=== PATIENT | female | born 1985 | race Caucasian/White ===

== ENCOUNTER 2023-11-26 01:42 | Emergency (ER) | payer MEDICAID, SELFPAY ==
[2023-11-26 01:47] VITALS: BP 111/62; PULSE 70; TEMP 36.5; O2SAT 99; BMI 23.8
--- NOTE | 2023-11-26 01:57 | ED_ITS ---
HPI - Chest Pain General Chief Complaint: Chest Pain Stated Complaint: CHEST PAIN Time Seen by Provider: 11/26/23 01:48 Source: patient Mode of arrival: walk-in Limitations: no limitations History of Present Illness HPI narrative: 38-year-old female presents to the emergency department for chest pain. It is in the left side of her chest and in a small focal area. It hurts when she pushes on it or moves. It started an hour ago when she was at work and there was no injury or other activity that could have caused this. It does not radiate and she has no back pain or complaints of shortness of breath. Related Data Home Medications ?Medication ?Instructions ?Recorded ?Confirmed bupropion HCl 150 mg 24 hr tablet, mg PO 11/26/23 extended release dicyclomine 20 mg tablet mg 11/26/23 hydroxyzine HCl 50 mg tablet mg 11/26/23 ibuprofen 600 mg tablet mg 11/26/23 metoprolol succinate 25 mg mg PO 11/26/23 tablet,extended release 24 hr omeprazole 40 mg capsule,delayed mg 11/26/23 release Allergies Allergy/AdvReac Type Severity Reaction Status Date / Time divalproex sodium (From Allergy Severe Confusion Verified 11/26/23 01:47 Depakote) morphine Allergy Intermediate Rash Verified 11/26/23 01:47 medroxyprogesterone (From AdvReac Intermediate Unknown Verified 11/26/23 01:47 Depo-Provera) Review of Systems ROS Narrative A ten point review of systems is negative except as noted above. Exam Narrative Exam Narrative: Nurses note and vital signs reviewed and patient is not hypoxic. General: The patient appears well and in no apparent distress. Patient is resting comfortably on cart. Skin: Warm, dry, no pallor noted. There is no rash noted. Head: Normocephalic, atraumatic Eye: Normal conjunctiva, no drainage Ears, Nose, Mouth, and Throat: oral mucosa is moist. Nares patent. Cardiovascular: Regular Rate and Rhythm Respiratory: Patient is in no distress, no accessory muscle use, lungs are clear to auscultation, no wheezing, rales or rhonchi. She has palpable tenderness in the left chest area which reproduces her symptoms. No crepitus present. Back: non-tender GI: Soft and nontender Musculoskeletal: The patient has no evidence of calf tenderness, no pitting edema, symmetrical pulses noted bilaterally Neurological: A&O normal speech Psychiatric: Cooperative Constitutional Vital Signs, click to edit/add: Last Vital Signs Temp 97.7 F 11/26/23 01:47 Pulse 70 11/26/23 01:47 Resp 16 11/26/23 01:47 BP 111/62 11/26/23 01:47 Pulse Ox 99 11/26/23 01:47 O2 Del Method Room Air 11/26/23 01:47 Course Vital Signs Vital signs: Vital Signs Temperature 97.7 F 11/26/23 01:47 Pulse Rate 70 11/26/23 01:47 Respiratory Rate 16 11/26/23 01:47 Blood Pressure 111/62 11/26/23 01:47 Pulse Oximetry 99 11/26/23 01:47 Oxygen Delivery Method Room Air 11/26/23 01:47 Temperature 97.7 F 11/26/23 01:47 Pulse Rate 70 11/26/23 01:47 Respiratory Rate 16 11/26/23 01:47 Blood Pressure 111/62 11/26/23 01:47 Pulse Oximetry 99 11/26/23 01:47 Oxygen Delivery Method Room Air 11/26/23 01:47 MDM - Chest Pain MDM Narrative Medical decision making narrative: Her workup including troponin is negative. She has had no dysrhythmias here. Her pain is reproducible and my clinical impression is that this is chest wall pain. Chest x-ray has not been officially read but on my interpretation there are no acute findings. Findings were discussed with the patient. Differential Diagnosis Differential diagnosis: Likely pneumothorax, atypical chest pain, st elevation myocardial infarction, costochondritis and chest pain Lab Data Attestation: I reviewed the patient's lab results. Labs: Lab Results 11/26/23 Range/Units 01:55 WBC 6.2 (4.0-11.0) 10^3/uL RBC 3.71 L (4.20-5.40) 10^6/uL Hgb 11.8 L (12.0-16.0) g/dL Hct 34.8 L (36.0-48.0) % MCV 93.8 (81.0-99.0) fL MCH 31.8 (26.7-34.0) pg MCHC 33.9 (29.9-35.2) g/dL RDW 13.0 (11.0-15.0) % Plt Count 248 (150-450) 10^3/uL MPV 10.0 (9.5-13.5) fL Neut % (Auto) 51.6 (43.0-75.0) % Lymph % (Auto) 40.6 (20.5-60.0) % [place] % (Auto) 5.9 (1.7-12.0) % Eos % (Auto) 1.1 (0.9-7.0) % Baso % (Auto) 0.6 (0.2-2.0) % Neut # (Auto) 3.2 (1.4-6.5) 10^3/uL Lymph # (Auto) 2.5 (1.2-3.8) 10^3/uL [place] # (Auto) 0.4 (0.3-0.8) 10^3/uL Eos # (Auto) 0.1 (0.0-0.7) 10^3/uL Baso # (Auto) 0.0 (0.0-0.1) 10^3/uL Abs Immat Gran (auto) 0.01 (0.00-0.03) 10^3/uL Imm/Tot Granulo (auto) 0.2 (0.0-0.5) % Sodium 138 (136-145) mmol/L Potassium 3.4 L (3.5-5.1) mmol/L Chloride 103 (98-107) mmol/L Carbon Dioxide 29.4 (21.0-32.0) mmol/L Anion Gap 9.0 BUN 7.0 (7.0-18.0) mg/dL Creatinine 1.01 (0.55-1.02) mg/dL Est GFR ( Amer) >60 (>=60 mL/min/1.73m^2) Est GFR (Non-Af Amer) >60 (>=60 mL/min/1.73m^2) BUN/Creatinine Ratio 6.9 Glucose 110 H (74-106) mg/dL Calcium 9.1 (8.5-10.1) mg/dL Troponin I High Sens 4.7 (4.0-51.3) pg/mL Imaging Data Chest x-ray: My impression: No acute findings ECG Data Attestation: I personally reviewed and interpreted this ECG as follows: (EKG on my interpretation shows normal sinus rhythm with a rate of 59 and no acute change.) Heart Score History: Slightly/Non-Suspicious ECG: Normal Age: <45 years Risk Factors: No Risk Factors Troponin: <Normal Limit Total Heart Score Recommendations & Risks:: 0 Discharge Plan Discharge Chief Complaint: Chest Pain Clinical Impression: Chest wall pain Patient Disposition: Home, Self-Care Time of Disposition Decision: 03:32 Condition: Good Mode of Transportation: Private Vehicle Prescriptions / Home Meds: No Action hydroxyzine HCl 50 mg tablet omeprazole 40 mg capsule,delayed release(DR/EC) dicyclomine 20 mg tablet metoprolol succinate 25 mg tablet extended release 24 hr PO ibuprofen 600 mg tablet bupropion HCl 150 mg tablet extended release 24 hr PO Print Language: Kittitian Instructions: Chest Wall Pain (ED) Referrals: Physician,Non-Staff, MD [Primary Care Provider] - 1 week
--- NOTE | 2023-11-26 01:57 | XR_ITS ---
The [address] [address] Patient Name: ALBIN GLEZ MRN: [id number] date: 1985 Sex: F Assigned Patient Location: ER Current Patient Location: Accession/Order Number: [id number] Exam Date: 11/26/2023 02:10 Report Date: 11/26/2023 04:19 At the request of: DEMI GONZALEZ Procedure: XR chest 1V EXAM: XR chest 1V HISTORY: Chest pain. COMPARISON: None. TECHNIQUE: AP erect portable chest radiograph performed. FINDINGS: The trachea is midline. The heart size is within normal limits. The cardiomediastinal silhouette and hilar shadows are within normal limits. There is no consolidation, pleural effusion or pulmonary vascular congestion. There is a small calcified granuloma within the right mid chest. There is no pneumothorax or osseous abnormality. XR/XR chest 1V IMPRESSION: There is no acute cardiopulmonary process. Electronically authenticated by: HARI ASHRAF Date: 11/26/2023 04:19
--- NOTE | 2023-11-26 01:57 | ECG_ITS ---
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
[2023-11-26 02:07] LABS: Basophils Percent Auto 0.6 % (0.2-2.0); Eosinophils Absolute Auto 0.1 10^3/uL (0.0-0.7); Eosinophils Percent Auto 1.1 % (0.9-7.0); Hematocrit 34.8 % (36.0-48.0); Hemoglobin 11.8 g/dL (12.0-16.0); Immature Granulocytes Abs Auto 0.01 10^3/uL (0.00-0.03); Immature Granulocytes Pct Auto 0.2 % (0.0-0.5); Lymphocytes Absolute Auto 2.5 10^3/uL (1.2-3.8); Lymphocytes Percent Auto 40.6 % (20.5-60.0); Mean Corpuscular HGB Conc 33.9 g/dL (29.9-35.2); Mean Corpuscular Hemoglobin 31.8 pg (26.7-34.0); Mean Corpuscular Volume 93.8 fL (81.0-99.0); Monocytes Absolute Auto 0.4 10^3/uL (0.3-0.8); Monocytes Percent Auto 5.9 % (1.7-12.0); Neutrophils Absolute Auto 3.2 10^3/uL (1.4-6.5); Neutrophils Percent Auto 51.6 % (43.0-75.0); Platelet Count 248 10^3/uL (150-450); Red Blood Count 3.71 10^6/uL (4.20-5.40); White Blood Count 6.2 10^3/uL (4.0-11.0)
[2023-11-26 02:26] LABS: BUN Creatinine Ratio 6.9; Calcium 9.1 mg/dL (8.5-10.1); Carbon Dioxide 29.4 mmol/L (21.0-32.0); Chloride 103 mmol/L (98-107); Estimated GFR (African America >60 (>=60 mL/min/1.73m^2); Estimated GFR (Non-African Ame >60 (>=60 mL/min/1.73m^2); Glucose 110 mg/dL (74-106); Potassium 3.4 mmol/L (3.5-5.1); Sodium 138 mmol/L (136-145); Troponin I High Sensitivity 4.7 pg/mL (4.0-51.3)
== END 2023-11-26 03:44 | disposition home or self-care (01) ==
PROVIDERS: Emergency Provider Emergency Medicine
DX: R07.89 Other chest pain (principal)
CPT/HCPCS: 36415; 71045; 80048; 84484; 85025; 93005; 99285

== ENCOUNTER 2024-01-03 03:14 | Emergency (ER) | payer MEDICAID, SELFPAY ==
--- OUTSIDE RECORDS SUMMARY | 2024-01-03 03:19 | XMS_ITS | CCD ---
Author Organization [facility] Care Team Providers Care Supervisor Mill Name Role Phone Unavailable Primary Care Provider SPEEDY Cardona Attending Unavailable Refugio Garza II Unavailable RAÚL JENSEN Attending Unavailable Kastor BAG PRESS OPERATOR HACKSAW INSPECTOR-C, Eulalia Spivey Attending Unavai lable Kastor BAG PRESS OPERATOR HACKSAW INSPECTOR-C, Eulalia Spivey Primary Care Unavai lable Kastor BAG PRESS OPERATOR HACKSAW INSPECTOR-C, Eulalia Spivey Admitting Unavai lable Kastor BAG PRESS OPERATOR HACKSAW INSPECTOR-C, Eulalia Spivey Attending Unavai lable Kastor BAG PRESS OPERATOR HACKSAW INSPECTOR-C, Eulalia Spivey Primary Care Unavai labLuigi Elias Consulting Unavailable Kastor BAG PRESS OPERATOR HACKSAW INSPECTOR-C, Eulalia Spivey Admitting Unavai lable Kastor BAG PRESS OPERATOR HACKSAW INSPECTOR-C, Eulalia Spivey Primary Care UnaTeresita Wilson Admitting Unavailable Teresita Gavin Attending Unavailable Kastor BAG PRESS OPERATOR HACKSAW INSPECTOR-C, Eulalia Spivey Primary Care Unavai lable Kastor BAG PRESS OPERATOR HACKSAW INSPECTOR-C, Eulalia Spivey Attending Unavai lable Kastor BAG PRESS OPERATOR HACKSAW INSPECTOR-C, Eulalia Spivey Admitting Unavai lable Kastor BAG PRESS OPERATOR HACKSAW INSPECTOR-C, Eulalia Spivey Primary Care UnavaLuigi Ba Admitting Unavailable Luigi Worley Attending Unavailable Kastor BAG PRESS OPERATOR HACKSAW INSPECTOR-C, Eulalia Spivey Primary Care Unavai Siddhartha Santana Admitting Unavailable Siddhartha Coppoal Attending Unavailable Provider, None Primary Care Unavailable Shonda Cerrato Admitting Unavailable Shonda Cerrato Attending Unavailable Kastor BAG PRESS OPERATOR HACKSAW INSPECTOR-C, Eulalia Spivey Attending Unavai lable Kastor BAG PRESS OPERATOR HACKSAW INSPECTOR-C, Eulalia Spivey Primary Care Unavai lable Kastor BAG PRESS OPERATOR HACKSAW INSPECTOR-C, Eulalia Spivey Admitting Unataylori Adrien Oliver Unavailable NO FAMILY, PHYSICIAN Primary Care Unavailable Refugio Garza II Admitting UnavailRefugio Campos II Attending Unavailabl e [facility] Care Unavailable Teresita Gavin Admitting Unavailable Romaine Teresita S Attending Unavailable NO FAMILY, PHYSICIAN Primary Care Unavailable Alberto Payton Admitting Unavailab Alberto Baca Attending Unavailab le Asaad, Imad Admitting Unavailable Asaad, Imad Attending Unavailable Eulalia Rodriguez Primary Care Unavailab le Allergies Allergy Classification Reported Allergen(s) Allergy Type Date of Onset Reaction(s) Facility (3 sources) medroxyPROGESTERone; Translations: [medroxyPROGESTERone] Drug Allergy Unknown [facility] Repository (3 sources) Morphine; Translations: [morphine] Drug Allergy Unknown [facility] Repository (2 sources) Valproate Drug Allergy Unknown [facility] Other (2 sources) Tylenol/Codeine #3 Drug allergy Unknown [facility] [employer] Other (1 source) medroxyPROGESTERone; Translations: [Depo-Provera] Drug Allergy [facility] Repository (2 sources) Valproate; Translations: [divalproex sodium] Drug Allergy 09-08-19 [facility] Repository (1 source) Valproate; Translations: [Depakote] Drug Allergy [facility] Repository (1 source) Acetaminophen Drug Allergy 09-08-19 [facility] Repository (1 source) Codeine Drug Allergy 09-08-19 [facility] Repository (1 source) medroxyPROGESTERone Drug Allergy 09-08-19 [facility] Repository (1 source) Morphine Drug Allergy 09-08-19 [facility] Repository Medications Current Medications Medication Drug Class(es) Dates Sig (Normalized) Sig (Original) benzonatate 100 mg oral capsule (2 sources) Non-narcotic Antitussive Start: 06-30-2021 End: 07-05-2021 take 1 capsule by mouth three times daily as needed for cough benzonatate (TESSALON PERLES) 100 MG capsule Take 1 capsule by mouth 3 times daily as needed for Cough 15 capsule 0 06/30/2021 07/05/2021 Active 24 hr buPROPion hydrochloride 300 mg extended release oral tablet (3 sources) Aminoketone take 1 tablet by mouth every twenty-four hours buPROPion HCl ER (XL) 300 MG 1 tablet in the morning Orally Once a day Active buPROPion HCl No t-Taking/PRN buPROPion HCl Ac tive 12 hr cetirizine hydrochloride 5 mg / pseudoephedrine hydrochloride 120 mg extended release oral tablet (1 source) alpha-Adrenergic Agonist, Histamine-1 Receptor Antagonist Start: 06-30-2021 End: 07-10-2021 take 5-120 mg by mouth once cetirizine-psuedoephedrine (ZYRTEC-D) 5-120 MG per extended release tablet Take 1 tablet by mouth 2 times daily for 10 days 20 tablet 0 06/30/2021 07/10/2021 Active clonazePAM 0.5 mg oral tablet (3 sources) Benzodiazepine take 1 tablet by mouth every twenty-f our hours clonazePAM 0.5 MG 1 tablet Orally Once a day Active take 1 tablet by kacy th every twenty-four hours KlonoPIN 2 MG 1 tablet Orally Once a day Not-Taking/PRN ibuprofen 600 mg oral tablet (1 source) Nonsteroidal Anti-inflammatory Drug take 1 tablet by mouth three times daily at mealtime as needed Ibuprofen 600 MG 1 tablet with food or milk as needed Orally Three times a day Active 24 hr metoprolol succinate 25 mg extended release oral tablet (1 source) beta-Adrenergic Rip take 1 tablet by mouth every twenty-four hours Metoprolol Succinate ER 25 MG 1 tablet Orally Once a day Active 24 hr nicotine 0.875 mg/hr transdermal system (1 source) Cholinergic Nicotinic Agonist apply 1 dose transdermal route once daily Nicotine 21 MG/24HR 1 patch to skin Transdermal Once a day Active ondansetron 8 mg oral tablet (1 source) Serotonin-3 Receptor Antagonist take 1 tablet by mouth every twenty-four hours Ondansetron HCl 8 MG 1 tablet as needed Orally Once a day Active pantoprazole 40 mg delayed release oral tablet (1 source) Proton Pump Inhibitor take 1 tablet by mouth every twenty-four hours Pantoprazole Sodium 40 MG 1 tablet Orally Once a day Active Completed/Discontinued Medications Medication Drug Class(es) Dates Sig (Normalized) Sig (Original) Acetaminophen / HYDROcodone (2 sources) Opioid Agonist Start: 03-26-2010 take 1 tablet by mouth every six hours as needed for pain Vicodin 5-500 MG 1 tablet as needed for pain Orally every 6 hrs prn for 5 day(s) Mar, Not-Taking/PRN Start: 03-26-2010 take 1 tablet by kacy th every six hours as needed for pain Vicodin 5-500 MG 1 tablet as needed for pain Orally every 6 hrs prn for 5 day(s) Mar, Not-Taking diclofenac sodium 0.01 mg/mg topical gel (2 sources) Nonsteroidal Anti-inflammatory Drug Start: 12-10-2022 Diclofenac Sodium 1 % apply 1-2 grams to affected area Externally up to Four times a day for 30 days Nov, Not-Taking/PRN meloxicam 15 mg oral tablet (2 sources) Nonsteroidal Anti-inflammatory Drug Start: 12-10-2022 take 1 tablet by mouth every twenty-four hours Meloxicam 15 MG 1 tablet Orally Once a day for 30 day(s) Nov, Not-Taking/PRN Metoprolol-hydro CHLOROthiazide (2 sources) Metoprolol-hydro CHL OROthiazide Not-Taking/PRN Metoprolol-hydro CHLOROthiazide Active 12 hr pseudoephedrine hydrochloride 120 mg extended release oral tablet (1 source) alpha-Adrenergic Agonist Start: 06-30-2021 End: 06-30-2021 pseudoephedrine (SUDAFED 12 HR) extended release tablet 120 mg rizatriptan 10 mg oral tablet (2 sources) Serotonin-1b and Serotonin-1d Receptor Agonist take 1 tablet by mouth every twenty-fou r hours Maxalt 10 MG 1 tablet Orally Once a day Not-Taking/PRN Problems Active Problems Problem Classification Problem Date Documented Da te Episodic/Chronic Abdominal pain (1 source) Unspecified abdominal pain Episodic Joint disorders and dislocations; trauma-related (3 sources) Disorder of left patellofemoral joint; Translations: [Patellofemoral disorders, left knee] Chronic Joint disorders and dislocations; trauma-related (3 sources) Patellofemoral stress syndrome; Translations: [Patellofemoral disorders, right knee] Chronic Nausea and vomiting (1 source) Nausea with vomiting, unspecified; Translations: [Nausea with vomiting, unspecified] Onset: 09-08-2023 Episodic Other aftercare (2 sources) High risk drug monitoring status; 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] Episodic Other gastrointestinal disorders (1 source) Constipation; Translations: [Constipation, unspecified] Episodic Other gastrointestinal disorders (2 sources) Constipation, unspecified; Translations: [Constipation, unspecified] Onset: 09-08-2023 Episodic Other lower respiratory disease (1 source) Cough; Translations: [Cough] Episodic Other nervous system disorders (4 sources) Chronic pain; Translations: [Other chronic pain] Chronic Other nutritional; endocrine; and metabolic disorders (1 source) Abnormal weight loss; Translations: [Abnormal weight loss] Onset: 09-08-2023 Episodic Spondylosis; intervertebral disc disorders; other back problems (2 sources) Solitary sacroiliitis; Translations: [Sacroiliitis, not elsewhere classified] Chronic Unclassified (1 source) Pain in right knee; Translations: [Pain in right knee] Onset: 12-10-2022 Viral infection (1 source) Disease caused by 2019-nCoV; Translations: [COVID-19] Episodic Past or Other Problems Problem Classification Problem Date Documented Da te Episodic/Chronic Other gastrointestinal disorders (1 source) Abdominal distension (gaseous); Translations: [Abdominal distension (gaseous)] Onset: 12-17-2022 Episodic Other non-traumatic joint disorders (1 source) Pain in left knee; Translations: [Pain in left knee] Onset: 12-10-2022 Episodic Results Test Name Value Interpretation Reference Range Facility Drug Screen,Urineon 09-08-19 Amphetamine Screen,Urine Negative Normal Negative [facility] Comment on above: Performed By: #### U RDS #### [facility] [address] [place] [address] [place] Barbiturate Screen,Urine Negative Normal Negative [facility] Comment on above: Performed By: #### U RDS #### [facility] [address] [place] [id number] [place] Benzodiazepines Screen,Urine Negative Normal Negative [facility] Comment on above: Performed By: #### U RDS #### [facility] [address] [place] [address] [place] Cannabinoid Screen,Urine Positive High Negative [facility] Comment on above: Result Comment: Thes e are unconfirmed results and should not be used for legal purposes. Drug Cut-Off Concentration: AMPH 1000 ng/mL LAURYN 200 ng/mL SHIRIN 200 ng/mL COCM 300 ng/mL OP 300 ng/mL PCP 25 ng/mL THC 20 ng/mL PERFORMED BY: [place] [address] PATHOLOGIST BRIM SHAPER CAPRI LEVI M.D. Performed By: #### U RDS #### [place] [address] [place] Cocaine Screen,Urine Negative Normal Negative [facility] Comment on above: Performed By: #### U RDS #### [address] Opiate Screen,Urine Negative Normal Negative [facility] Comment on above: Performed By: #### U RDS #### [address] Phencyclidine Screen,Urine Negative Normal Negative [facility] Comment on above: Performed By: #### U RDS #### [place] [address] [place] Stefano 09-08-2023 L Specimen: [id number] Received: 09/08/23 Status: GALINDO Gandara Num: [id number] Spec Type: Surgical Subm Dr: Jose Cruz Andrade MD Tissues: A Small Intestine - Biopsy/Polyp (SMALL BOWEL) B GASTRIC FOR HP (GASTRIC HP) C Colon Biopsy (RECTUM POLYP) Procedures: HE/6, Gross/Micro L4/3, H PYLORI, IHC First AB Age/ Patient Sex Location Account Attending Physician Reed,Arielle Prieto 38/F [id number] Jose Cruz Andrade MD SPEC NUM: [id number] RECD: 09/08/23 STATUS: MYRONT REQ NUM: [id number] [place]: 09/08/23- SUBM DR: Jose Cruz Andrade MD ENTERED: 09/08/23 [facility] DR: SPEC TYPE: Surgical DEPT: S ORDERED: HE/6, Gross/Micro L4/3, H PYLORI, IHC First AB ORDERED: HE/6, Gross/Micro L4/3, H PYLORI, IHC First AB Pathological Diagnosis A. Small bowel, biopsy: No significant pathologic abnormality. B. Stomach, Biopsy: Reactive/ Chemical Gastropathy. C. Polyp, rectum, biopsy: Hyperplastic polyp. Clinical Information Nausea, vomiting, weight loss, constipation, family history of colon cancer. Rule out celiac and rule out H. pylori. Gross Description Received are 3 formalin filled containers each labeled with the patient's name, date of and specific specimen site. A. Further labeled small bowel BX are 2 grace mucosal tissue fragments each measuring 0.3 x 0.2 x 0.1 cm, entirely submitted in A1. B. Further labeled gastric BX is a 0.3 x 0.3 x 0.1 cm grace mucosal tissue fragment, entirely submitted in B1. ---- Specimen: [id number] Received: 09/08/23 Status: GALINDO Lloyddion Num: [id number] Spec Type: Surgical Subm Dr: Jose Cruz Andrdae MD Tissues: A Small Intestine - Biopsy/Polyp (SMALL BOWEL) B GASTRIC FOR HP (GASTRIC HP) C Colon Biopsy (RECTUM POLYP) Procedures: HE/6, Gross/Micro L4/3, H PYLORI, IHC First AB ---- Patient: Arielle Reed [id number] (Continued) ---- Specimen: [id number] Received: 09/08/23 (Continued) Gross Description (Continued) Signed (signature on file) Grabiel Gomez MD 09/09/23 1719 ---- Specimen: [id number] Received: 09/08/23 Status: GALINDO Juliocesar Num: [id number] Spec Type: Surgical Subm Dr: Jose Cruz Andrade MD Tissues: A Small Intestine - Biopsy/Polyp (SMALL BOWEL) B GASTRIC FOR HP (GASTRIC HP) C Colon Biopsy (RECTUM POLYP) Procedures: HE/6, Gross/Micro L4/3, H PYLORI, IHC First AB ---- Patient: Arielle Reed [id number] (Continued) ---- Specimen: [id number] Received: 09/08/23 (Continued) Gross Description (Continued) C. Further labeled rectal polyp is a 0.3 x 0.2 x 0.1 cm grace polypoid tissue fragment, entirely submitted in C1. CPT Codes 22367u4 ---- ---- Specimen: [id number] Received: 09/08/23 Status: GALINDO Lloyddion Num: [id number] Spec Type: Surgical Subm Dr: Jose Cruz Andrade MD Tissues: A Small Intestine - Biopsy/Polyp (SMALL BOWEL) B GASTRIC FOR HP (GASTRIC HP) C Colon Biopsy (RECTUM POLYP) Procedures: HE/6, Gross/Micro L4/3, H PYLORI, IHC First AB ---- Patient: Arielle Reed [id number] (Continued) ---- Signed (signature on file) Grabiel Gomez MD 09/09/23 1719 [facility] Coding Summaryon 02-24-2023 Coding Summary HTMLBase 64 WbgaeooiRDh2aBt+PGhlYW Q+HA0DIKEzI19imECpiU7x T0YDWYxZAlvcGVOESSqNLv CjjtHzOL2leAErOXTb IC8+CS4tJTGbDlpdfXZse4 K8mIU5I68pah4iVXpifYN9 NTNbXcHrsrsjr8ozkBm5WS cuNmluOyBt WFDgxS89ZJG1wK17Cm94uO GaxTOcv8slfEz5DlXlHIEv HLQ0yEwnPFrmr7DjYEVtE4 2taIGzf9B2 VMMbzGjuvHCgGcXvfJV7bF 0jMMilssitm4xnoovrVop3 ca72hSRjb6U1mPN5D1Rwnp G2GVZorAYd RkeqjFHFmI5kznxvk3ovol xePxYjIWQcVVl2WDo0ZIWt fZjuAqDvUY52HFY4CSChqp IxZ3SjQVUf bTepLdP6f2D4Xb7NH7PNDs ffD1KBMBNYZPlggBC+PC90 hz17I0KlNgjiKyk8FVGoSZ P7vWD6xQ7v KKNiAGyle2G7bBG5E0Jtql Bavy6vu8qrSZZtCDegD83x yEDsy4S1PQBkdDO4CTHdmZ dwGvZqaS26 Oyc+WRImxCopg6DrFoaew4 bma9fldDv4TqruPKGqmvKi iBinEOT8p2EdPv0bXNMupO N3mBT8dV8o XiPzFmX7QQzbB755HkOhiF ZtVserR14zB5ZfdIJ+PHRy Aes9YYPsfHhfYV7hF8EoNJ RpbmctbGVm fFliKU1uREEivitdPFQmiP 9kIWJqY3p4GwSaElK5KTge G4OoYDYdtywrHv19pH9uYr GpMxR3QWnx J7UpwpW4CXFdrLRnOCukQL F2J22ld2F8BCBlWTYzCKV0 zCI5nG6eoJzlbrjibAMbwG sgdmVydGlj GFsdZAmfZ578LFGokGqoCo NvZGluZyBEYXRlOiAgMDEv MTAvMjAyNDwvdGQ+PHRkIH Z2lBsfTUNh rISmVBqvXp0vzBgoxXhdSE 8wSJGkaskuMHBlzH1uUKBv tZNpdEzoRZ5cPDLadvryp5 67YkCcYFT6 XURzaWGyU9ZnoJ2gTaNiHT HmFCRwN1BdqYCvMMajU587 QXxlPtB7NBHxxtLoZ7KyJQ FsaWduOiB0 r7X0Bm1Lp8AsoubhW1QirS RvJcZpIuzjBYg6V2VeDvnt dHI+VS95HWUaYS15EEz2QF F3pRowTMag EAJyG5RmyE3lRhQpBRXfEW RkOyc+PHRhYmxlIHdpZHRo TNzaSUXeCbWzsHjyFP6jNd 9yZGVyLWNv iLnieDRgSbKsb7hoFNUbRZ lzLM1vpWbvL6FxtMM7CGPm o9g2Sd75V30dC1OalKR+PG EexXO1sEC3 qJ1xRxMbJgC5DGzrC366Lw BwoPNmLwapv6cdl3zsiYg6 JgF1LLFvhlNjxBxwGYS5g1 YqFi10Z59z IHdpZHRoPSIxNSUiIHZhbG cyhk4kiV3tXk9+PGNvbCB3 dIK8vK6aKsTlTiA5FHajE4 49InRvcCIv Iywow8gqs7xrlUh4BwRyZR ZfrbZxeAvsKXH0v9OwWn87 X2QyyVgqt8ErHbb7bz82oL Zfa2V2hAE5 J6XsNVWjkiopcKHehUnuCX 3mUXMqjjjvEZLcyL2oMBQb J7l0PhKrZuC7ZTnwP3Jmpb A2OABcoOYf LRRlkFUOkR1sdepgh7bstn gkWuVnRLBfTKm1VPy4UFEi uOneXdHtXWH8LzG1PJZ9aS HlkM1srYly gucjsX0dQkg+SJL2nGMvhB XDMN5dYjzlqBS+PHRkIHN0 eQptSKoxOVUpoZ4kFVNoN8 b1WeUsCfD5 DPztX3XoatQ6IMFfpFTiUU SacHWSyS1qsasxb7kznksh VhSjXGEuLVx1OZq6EZNetH duOiBsZWZ0 JcT9GGJ4cHHttF7kpDamgk zovH1nBrm+QmlydGggRGF0 XGt3T4RaUhu5TEEpwXwmJE 0ncGFkZGlu Cb4cvFllyIufCM3oDJKiha ocl789RaQfo0khIUFlnJGo JEkhKZA1Z52lx1Y4JIXfEM MnVNU8dUH7 jW1uqKflylcyzZEhyPttma JqlTrkODduOWhdG447CGHy bQmwGwEjJBt3M5HkLgn3VF QnaIsvJF5s qJKdSClgDq9kwVrdqPyvPA 7fRQGngxwgf796LnCvz0wj TUQdaXEjKMiiCHA1Z69yj9 Y9PDEuYSXb FWG5lCP3oW9lyVsnmsslkI VmdDsgdmVydGljYWwtYWxp G837YVZlzVxwWhXrmSd6S3 MoMrx5GDUe oEhoXB9oiFAyXWwnJe6uyB tgmTdtQN1tCYEjintfw338 GxAht1wvIALfeJDiZOdoPU D6L43zb3Y1 TSTwRFWmALY1iHQ7xJ3rkJ lnbjogbGVmdDsgdmVydGlj VBlhZChwQ214GKXtyOzuAq BhdGllbnQg OBzeGPv2E3CdFxizxTZ+PC 68SHWpQC57pCDnaNCze5mx xEy6ZzSiDZZgRAC1pXljRO zla4SwJIGl W58tkLDbn7D2CQVouVsimM XdMuTbaZC0kI7jCZcxzphj z9mdjxjbSsgfy9ycno42jO 68U71wHRhg ZHRoPSIzMCUiIHZhbGlnbj 8keX2yIh7+LUVxgQI2xUT1 pJ2rOIIxWzU6TZceD843Qb RvcCIvPjxj h4ruw4qcnXg4VbZ3EREfxu ZnxGzdISM8b4TzMo26W00w IHdpZHRoPSIyMCUiIHZhbG epvp7yrP4y Ii8+QCZokQN8yQJ2pB8lJa CiJjX5LGphJ073SjLfqPRf RjemQ26rJ0EyqAP+PHRyPj y0PSWcdWcp NL5ogPQzCBwyAs7vLDI4Pl BaMiVaMCbdJ1WnCJAjrpfy bqedoCH4CMIkAFOpnR10Aq 9udDogMTBw sKNSmS9bnamyf2uugkiuMk GlZGLqNIg1NWn6TYSfqBtj DaAkDBT1TqW5IUM9cNPdrM 1hbGlnbjog sF8mP0CnXWMrkuedXa74sZ 9mAmFcWiC6FZbjPcp+V0FS HFaaXVPPPGHFSZ61JR90wQ Tff2J9fKD1 I7BnKMXvawfugiejeWU3FN LsHNKzgA67gESdONjkAr7s m7B1h226SAXwJMVcbV90Na 9udDogMTBw eCKAwK7rgwpqj7kidluxBu VtSFMaVXa7JSf1GYMtcMvl ZgKeHAA2AzL2KWN9eUFxtB 1hbGlnbjog pK6kXoi+YCLgDbniPYw4Di wvdGQ+VCDhDFC4iZhkXSkx XEZhrK6wLEXxQ4p8PwTgUn H0OMciH3Yi OPExyxbvFu78rN9lRkZzMt F1AEhfU4BluoP5XMCinWIy JYqpXMO1K16ii5V7HRPtWF DsAIH4rBI6 lW2rcTdwtbkyjKHvmVkdvy WqkUbkQCboXYxxL037BLYc pRrwXwS9RAdsBMGdJI47OP 39vTKhr6S9 fXD6S8GeAYIzeiavxanjuE N0FSXuWPStoD73vMMtOBrv Lu4io4Q7e314TJCgZADxbX 08Hu8tiQjd EHJlyUYBwR9tlovnh1wpkt pvLiTgDRNhDKc2GUp3UNXo wFrxQpDjDLK6YgI1LGZ2cP NscF3jtRme lizabD3lGup+RkVNQUxFPC 21IK16wSCgs0I2tQO0R2Yq VTAybptyesjnsLI8WYYlKG JopL31wOIp REofPy7kl9W2g296UCRhWP KneS53Xh8uxPjkQQAysMLN uM2cuepwd0cmpuhzVvLuSY SyBWf6YEj1 YRFqoZqdHwOmPRU7HqQ2BI Y6qTDtuD2qsRsrsnyrzM9z Oyc+YZ1cxibllcW1KC98ZW 44L1CdJwxt dGFibGU+PHRhYmxlIHdpZH RfMZgaDADwYkRwmLgdWI7l Xq2lAMQaIAEyaDughCFtKt Knl1enHHVx VYeuOV5orMwyV5LfkCY5MJ Qtb3q0Ai89Z34mU3BozYN+ GQShwTS3lZW6sY8lFsZlYp F3WWfdP091 YiAvoQHcBxjnz0fnf0jebM y7YsIxBYQtxxWwtPbjTLV1 p4GgAv19I53iTWuiHUKeAA IyMCUiIHZh rInbtg7naI9dFs3+PGNvbC N8oHJ9fA4bNfAsJuK9YAzi H658LfZufGNwVtfgK34nH6 JvdXA+PHRy Bjd6RLGkpTxgJS4crCByFI zjMo4uWGO2JlZxOyRcRZhh J6UiVWVbkvvzsxbasOH2PU DcDNLhpQ98 Ox4ejElkBf4zYRYzXOP1CA CkyOMeV9GruF8yTvJiNNAk QPWxL9EufURrWYspQ831TA tdQpS1KQHk nySwQ6NcGQBjkSpsBmT2e0 O3Ox0AuAbnbGBkAC7mTbMq HRa0Z2DeQck4SUTkyNhdWE 0ncGFkZGlu De2mtVfmgRfiYZ0iLJOsfz xrb621LnJdd0biHUHkuOOw GYvhEZF8N84iu0I5APBsZD NsGLJ5sKU7 dC2eoYdrgvimmTXnhClynq KmuIpvZKkcHPlxQ587TRXw zIggIgDSHzs4N9CqSsj8FW GfdKlcEA7v rUUjFXyiGn2ptCnyzSqgEH 9qXGWnqfgzw528GlDfs7md NVFwxJXsTGkpDHA3S65zo8 D5WJRkNHKy WXG3kRM9aH0hgTsxgxkdaW VmdDsgdmVydGljYWwtYWxp W547QHQioGlqAn1ILxs6L3 MqXwq9HMYl tOsmCW0dgGRhEPilKt4mvQ hdiDrwVK8nHCBkyvqnp219 FxZwr6ftIVSbbBMgLCuhKY Q5O87na2H1 HBMjMAWpAOJ5zLH6rM0ttL lnbjogbGVmdDsgdmVydGlj WEavDActM769CUQlcGqkPs BheWVyOjwv dGQ+CD31ze25Z3JpYjohJd w9DOLsEZV1tEF9qI8wSJKi VMust3J0uDJ5P8QlaoAdaz 5sl1suMQRn ZTo (more content not included)... [facility] 02-17-2023 [facility] Office Visit ([facility]) ARIELLE REED ([id number]) 1985 F Date Time Provider Department 02/17/23 3:30 PM RAÚL JENSEN [facility] During your visit today, we recorded the following information about you: Pulse Blood pressure Weight 77/minute 104/70 63.5 kg Raúl Jensen MD 02/17/2023 4:01 PM [facility] [place] SECTION OF REGIONAL CARDIOLOGY OUTPATIENT VISIT DATE February 17, 2023 OUTPATIENT VISIT TYPE NEW PRIMARY CARE PHYSICIAN: To use this Smartlink, specify the provider ID whose address you want to display, e.g., .[email or web address][1 (where 1 is the provider ID). A written report of the findings and recommendations will be sent to the requesting provider via shared medical record or via [employer]. Patient is being seen at the request of the referring physician for Arrhythmia , Chest pain, Hyperlipidemia, Hypertension, and syncope. HISTORY OF PRESENT ILLNESS: Ms. Reed is a 37 year old female with a history of Mgsgq-Apfzduqrz-Sccce status post ablation therapy at age 14. Syncope. Chest discomfort. Palpitations. Anxiety. Bipolar disorder. Carpal tunnel. Fibromyalgia. ? Hyperlipidemia. ? Hypertension. History of smoking. Cardiovascular workup includes: Ablation therapy for Pwrkm-Utcpdsmlr-Fjimb at age 14. A treadmill stress testing on 09/22/2022 at [facility] was negative however the patient did only 4 minutes and 42 seconds of total exercise. She achieved 79% maximal heart rate predicted. An echocardiogram done on 09/22/[address] [facility] showed ejection fraction 55 to 60%. No valvular heart disease of any significance. For a few months now she has been experiencing symptoms of chest discomfort described as sharp stabbing pain lasting between 20 minutes to few hours. She mentioned that the chest discomfort happen with rest and on activity. However her symptoms also include shortness of breath with any activity. The dizziness got much better after she started the small dose of Toprol-XL however she still has it occasionally. IMPRESSION: Encounter Diagnosis ICD-10-CM 1. Chest discomfort R07.89 CT CALCIUM SCORING SELF [place]Y ([place]) 2. WPW (Cnxsj-Syjzoqsih-Vcyno syndrome) I45.[address] CALCIUM SCORING [place]ELF [place]Y [place] 3. Status post ablation of accessory bypass tract Z98.[address] [place]CIUM [place] 4. Syncope and collapse R55 ECG COMPLETE CT CALCIUM SCORING [place]ELF [place]Y ([place]) 5. Dizziness R42 ECG COMPLETE CT CALCIUM SCORING [place]ELF [place]Y ([place]) 6. Smoking F17.200 CT CALCIUM SCORING SELF [place]Y [place]) PLAN AND RECOMMENDATIONS: Chest discomfort Atypical most likely noncardiac. Negative suboptimal stress test. I will ask for a calcium scoring of the coronary arteries. If that is negative no further cardiac workup is needed. History of Scyji-Mudkdtgcj-[id number] Status post ablation therapy at age 14. Syncope As well as dizziness. Suboptimal stress testing however negative for ischemia. Echocardiogram normal. No more syncope at this point. Dizziness is very unlikely to happen since she started taking her Toprol-XL. Also I did orthostatic pressures today and her blood pressure was exactly the same 104/70 sitting and 105/72 standing up. No orthostatic pressures. However the patient admitted that she does not drink much she drinks only 1 cup of water a day. She was advised to take 64 ounces of water a day and include some salt tablets at times if her blood pressures are low. Smoking The patient continues to smoke about 5 cigarettes a day at this point. She smoked for the last 15 years. She was advised again to stop smoking completely and indefinitely. REVIEW OF SYSTEMS: Chest pain Yes Shortness of breath No Bleeding No Dizziness Yes Syncope Yes Palpations No 10 systems reviewed and are negative with the exception of pertinent positives described in HPI PHYSICAL EXAMINATION: BP 104/70 Pulse 77 Wt 63.5 kg (140 lb) SpO2 99% HEENT: normocephalic, EOMI Heart: regular rhythm Lungs: clear to auscultation Abdomen: bowel sounds present Extremities: no edema Musculoskeletal: chest wall nontender Neurological: alert and oriented Psychiatric: appropriate and cooperative Skin: no rash, cellulitis or lesions appreciated CARDIOVASCULAR MEDICINE TESTING: I have personally reviewed ECG, laboratory results, outside medical records, echocardiogram report, and stress test report PAST CARDIAC HISTORY: See above. History reviewed. No pertinent past medical history. History reviewed. No pertinent surgical history. Social History Tobacco Use Smoking status: Every Day Packs/day: 0.25 Years: 15.00 Additional pack years: 0.00 Total pack years: 3.75 Types: Cigarettes Substance Use Topics Alcohol use: Not Currently History reviewed. No pertinent family history. ALLERGIES Allergen Reactions Morphine Other: See Comments ineffect (more content not included)... Normal [facility] ECG COMPLETEon 02-17-2023 ECG COMPLETE Ventricular Rate : 7 2 BPM Atrial Rate : 72 BPM P-R Interval : 110 ms QRS Duration : 78 ms Q-T Interval : 358 ms QTC Calculation(Bazett) : 392 ms Calculated P [place] : 42 degrees Calculated R [place] : 66 degrees Calculated T [place] : 64 degrees SINUS RHYTHM WITH SHORT KS OTHERWISE NORMAL ECG Confirmed by RAÚL JENSEN MD ([id number]) on 02/18/2023 8:27:50 AM NAME : ARIELLE REED PID : [id number] : 1985 Gender : Female Race : ORD : [id number] Procedure Date : Feb 17 2023 15:40:26 Edit Date : Feb 18 2023 08:27:55 Diagnosis: SINUS RHYTHM WITH SHORT KS OTHERWISE NORMAL ECG Confirmed by RAÚL JENSEN MD ([id number]) on 02/18/2023 8:27:50 AM 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 30,000 cfu/ml Escherichia coli ORGANISM EC --- SUSCEPTIBILITY -- ORGANISM ID: 1 ANTIBIOTIC INTERPRETATION FAB STATUS ORGANISM ECEC Amik S <=16 Verified Amox/Cla S <=8/4 Verified Amp R >16 Verified Amp/Sul I 16/8 Verified Azt S <=4 Verified Cefaz S 4 Verified Cefep S <=8 Verified Cefo S <=2 Verified Ceftaz S <=1 Verified Ceftri S <=1 Verified Cefur S <=4 Verified Ceph I 16 Verified Cipro S <=1 Verified Ertap S <=0.5 Verified Gent S <=2 Verified Imi S <=1 Verified Levo S <=2 Verified Nitro S <=32 Verified Pip/Luis Carlos S <=16 Verified Tetra S <=4 Verified Tobra S <=4 Verified Tri/Sulf S <=2/38 Verified Normal [facility] Comment on above: Performed By: #### 6 [id number], [id number] #### [facility] (DEFAULT) [address] [place] [address] 345[address] ED Clinical Summaryon 2022 ED Clinical Summary [facility] - Emergency Department [address] [place] [id number] ED Clinical Summary PERSON INFORMATION Name: ARIELLE REED Age: 37 Years Sex: FEMALE : 1985 MRN: Acct#: Visit Reason: Dysuria; PAINFUL/FREQUENT URINATION Arrival: 02/09/2023 14:19:00 Discharge: 02/09/2023 16:45:00 LOS: 000 02:26 Check In: 02/09/2023 14:19:00 Checkout:02/09/2023 16:45:00 Address: [address] [facility] [address] PCP: Eulalia Duke APRN PROVIDER INFORMATION Provider Role Assigned Unassigned edmay RN HEMO DIALYSIS Nurse 02/09/2023 14:24:25 Siddhartha Coppola MD ED Provider 02/09/2023 16:29:12 VITALS INFORMATION Vital Sign Triage Latest Temperature Tympanic Temperature Temporal Artery Pulse Rate O2 Sat 100 % 100 % Respiratory Rate 18 br/min 18 br/min Blood Pressure /53 mmHg /53 mmHg MEDICAL INFORMATION Medications Given: Medication Dose Route cephalexin 1000 mg Oral phenazopyridine (Pyridium) 100 mg Oral Allergy Information: Depo-Provera; Depakote; divalproex sodium; morphine; medroxyPROGESTERone PHYSICIAN DOCUMENTATION Patient: ARIELLE REED Age: 37 years Sex: FEMALE : 1985 Associated Diagnoses: Acute cystitis Author: Siddhartha Coppola MD Basic Information Time seen: Date & time 02/09/2023 16:29:00. Additional information: Chief Complaint from Nursing Triage Note : Chief Complaint 02/09/2023 14:19 EST Chief Complaint Patient is here for painful urination. Started a couple weeks ago. . History of Present Illness 37-year-old female presented to ER for evaluation of dysuria, urinary frequency. Patient stated that she had onset of symptoms about 3 weeks ago. Stated that she has been taking fluids and cranberry. Had some relief. Reported having worsening symptoms within the past several days. Denies any fever. No flank pain or abdominal pain. Reported having frequency, urgency and pain on urination. Review of Systems Constitutional symptoms: No fever, ENMT symptoms: Stated that she had an enlarged lymph node at the right anterior cervical neck area, several weeks ago. Stated that she was to follow-up with PCP if that not improved over several weeks. Has not improved.. Gastrointestinal symptoms: Abdominal pain, suprapubic. Genitourinary symptoms: Dysuria, hematuria. Psychiatric symptoms: Negative except as documented in HPI. Health Status Allergies: Allergic Reactions (Selected) Moderate Morphine- Itching. Severity Not Documented Depakote- Went crazy. Depo-Provera- Bleeding. Divalproex sodium- No reactions were documented. MedroxyPROGESTERone- No reactions were documented.. Medications: (Selected) Documented Medications Documented Estradiol Patch 0.025 mg/24 hours twice weekly transdermal film, extended release: See Instructions, 1 patch(es), 0 Refill(s) ibuprofen 600 mg oral tablet: 600 mg = 1 tab(s), Oral, QID, 360 tab(s), 0 Refill(s) ondansetron 8 mg oral tablet: 8 mg = 1 tab(s), Oral, BID, 6 tab(s), 0 Refill(s) pantoprazole 40 mg oral delayed release tablet: 40 mg = 1 tab(s), Oral, Daily, 90 tab(s), 0 Refill(s). Past Medical/ Family/ Social History Medical history: Resolved Left ankle pain ([id number]): Resolved. Foot pain, left (609881758): Resolved. Hemorrhoid (744875492): Resolved. Ectopic (58249516): Resolved., Reviewed as documented in chart. Surgical history: Bilateral Medial Branch BlockL3,4,5 on 04/26/2019 at 33 Years. Hysterectomy ([id number]) in 2011 at 26 Years. heart ablasion in 1999 at 14 Years. Exploratory laparotomy ([id number]). Tonsillectomy (471313764)., Reviewed as documented in chart. Family history: Cancer Mother Cancer Brother Grandparent , Reviewed as documented in chart. Social history: Social & Psychosocial Habits Alcohol 07/20/2015 Risk Assessment: Denies Alcohol Use 02/09/2023 Alcohol Use: Past Employment/School 08/17/2018 Status: Unemployed Description: Disabled for 3 yrs for back and neck Exercise 08/17/2018 Duration (average number of minutes): 0 Home/Environment 08/17/2018 Lives with: Children, Self Living situation: Home/Independent Nutrition/Health 08/17/2018 Caffeine intake amount: Medium Substance Use 07/20/2015 Risk Assessment: Denies Substance Abuse 02/09/2023 Substance use: Current Type: Marijuana Frequency: Daily Tobacco 02/09/2023 Smoking tobacco use: Current everyday tobacco Electronic Cigarette/Vaping 02/09/2023 Electronic Cigarette Use: Never , Reviewed as documented in chart. Problem list: Active Problems (10) Asthma Back pain, chronic Chipped tooth Common migraine Depression Fibromyalgia Lumbago Lumbar spondylosis Seasonal allergies Smoker , per nurse's notes. Physical Examination Vital Signs Vital Signs 02/09/2023 14:19 EST Temperature Oral 37 DegC Heart Rate Monitored 79 bpm Respiratory Rate 18 br/min Systolic Blood Pressure 115 mmHg Diastolic Blood (more content not included)... Normal [facility] ED Note - Physicianon 2022 ED Note - Physician Patient: ARIELLE REED Age: 37 years Sex: FEMALE : 1985 Associated Diagnoses: Acute cystitis Author: Siddhartha Coppola MD Basic Information Time seen: Date & time 02/09/2023 16:29:00. Additional information: Chief Complaint from Nursing Triage Note : Chief Complaint 02/09/2023 14:19 EST Chief Complaint Patient is here for painful urination. Started a couple weeks ago. . History of Present Illness 37-year-old female presented to ER for evaluation of dysuria, urinary frequency. Patient stated that she had onset of symptoms about 3 weeks ago. Stated that she has been taking fluids and cranberry. Had some relief. Reported having worsening symptoms within the past several days. Denies any fever. No flank pain or abdominal pain. Reported having frequency, urgency and pain on urination. Review of Systems Constitutional symptoms: No fever, ENMT symptoms: Stated that she had an enlarged lymph node at the right anterior cervical neck area, several weeks ago. Stated that she was to follow-up with PCP if that not improved over several weeks. Has not improved.. Gastrointestinal symptoms: Abdominal pain, suprapubic. Genitourinary symptoms: Dysuria, hematuria. Psychiatric symptoms: Negative except as documented in HPI. Health Status Allergies: Allergic Reactions (Selected) Moderate Morphine- Itching. Severity Not Documented Depakote- Went crazy. Depo-Provera- Bleeding. Divalproex sodium- No reactions were documented. MedroxyPROGESTERone- No reactions were documented.. Medications: (Selected) Documented Medications Documented Estradiol Patch 0.025 mg/24 hours twice weekly transdermal film, extended release: See Instructions, 1 patch(es), 0 Refill(s) ibuprofen 600 mg oral tablet: 600 mg = 1 tab(s), Oral, QID, 360 tab(s), 0 Refill(s) ondansetron 8 mg oral tablet: 8 mg = 1 tab(s), Oral, BID, 6 tab(s), 0 Refill(s) pantoprazole 40 mg oral delayed release tablet: 40 mg = 1 tab(s), Oral, Daily, 90 tab(s), 0 Refill(s). Past Medical/ Family/ Social History Medical history: Resolved Left ankle pain ([id number]): Resolved. Foot pain, left (164578259): Resolved. Hemorrhoid (023442306): Resolved. Ectopic (47374786): Resolved., Reviewed as documented in chart. Surgical history: Bilateral Medial Branch BlockL3,4,5 on 04/26/2019 at 33 Years. Hysterectomy ([id number]) in 2011 at 26 Years. heart ablasion in 1999 at 14 Years. Exploratory laparotomy (944220379). Tonsillectomy (281819160)., Reviewed as documented in chart. Family history: Cancer Mother Cancer Brother Grandparent , Reviewed as documented in chart. Social history: Social & Psychosocial Habits Alcohol 07/20/2015 Risk Assessment: Denies Alcohol Use 02/09/2023 Alcohol Use: Past Employment/School 08/17/2018 Status: Unemployed Description: Disabled for 3 yrs for back and neck Exercise 08/17/2018 Duration (average number of minutes): 0 Home/Environment 08/17/2018 Lives with: Children, Self Living situation: Home/Independent Nutrition/Health 08/17/2018 Caffeine intake amount: Monsters Substance Use 07/20/2015 Risk Assessment: Denies Substance Abuse 02/09/2023 Substance use: Current Type: Marijuana Frequency: Daily Tobacco 02/09/2023 Smoking tobacco use: Current everyday tobacco Electronic Cigarette/Vaping 02/09/2023 Electronic Cigarette Use: Never , Reviewed as documented in chart. Problem list: Active Problems (10) Asthma Back pain, chronic Chipped tooth Common migraine Depression Fibromyalgia Lumbago Lumbar spondylosis Seasonal allergies Smoker , per nurse's notes. Physical Examination Vital Signs Vital Signs 02/09/2023 14:19 EST Temperature Oral 37 DegC Heart Rate Monitored 79 bpm Respiratory Rate 18 br/min Systolic Blood Pressure 115 mmHg Diastolic Blood Pressure 53 mmHg LOW SpO2 100 % Oxygen Therapy Room air . Measurements 02/09/2023 14:19 EST Height/Length Estimated 157 cm Weight Estimated 53 kg Body Mass Index Estimated 21.5 kg/m2 . General: Alert, no acute distress. Skin: Warm, dry, intact. Head: Normocephalic, atraumatic. Neck: There is a single right anterior cervical lymph node, upper chain, about 1.2 cm, round, mobile, nontender on palpation. Eye: Pupils are equal, round and reactive to light, extraocular movements are intact, normal conjunctiva. Ears, nose, mouth and throat: Oral mucosa moist. Respiratory: Respirations are non-labored. Gastrointestinal: Soft, Nontender, Non distended, Normal bowel sounds, Mild right flank pain on percussion. Back: Normal range of motion. Musculoskeletal: Normal ROM. Neurological: Alert and oriented to person, place, time, and situation. Medical Decision Making Differential Diagnosis: Urinary tract infection, cystitis, pyelonephritis, nephrolithiasis, urethritis. Results review: Lab results 02/09/2023 14:35 EST UA Color Yellow UA Clarity SL CLOUDY UA Glucose NEGAT (more content not included)... Normal [facility] ED Patient Summaryon 023 ED Patient Summary [facility] - Emergency Department [address] [place] [address] PATIENT DISCHARGE INSTRUCTIONS Patient Information Name: ARIELLE REED Age: 37 Years Date of : 1985 Reason For Visit: Dysuria; PAINFUL/FREQUENT URINATION Arrival Time: 02/09/2023 14:19:00 Primary Care Physician: Eulalia Duke APRN Attending Physician: Siddhartha Coppola MD Comment: Visit Diagnosis: Diagnoses This Visit Acute cystitis (N30.00) Dysuria ([id number]) The Pharmacy at [facility] is open Wednesday through Wednesday from 9A to 6P and Wednesday and Wednesday from 9A to 5P Prescription Information: If you have been given a prescription for narcotics, seek immediate medical attention if you have any difficulty breathing or any sudden status changes such as confusion and sleepiness. If you or anyone you know is experiencing suicidal thoughts, mental health, alcohol and/or drug addiction problems; contact the [facility] 07/09 Crisis Hotline -Text VIR if 198055. If you received any narcotics, sedation, or any other medication that causes drowsiness for the next 24 hours, unless otherwise directed: ? Do not drive a car. ? Do not operate machinery such as power tools, lawn mowers, drills, sewing machines, or stoves ? Avoid alcoholic beverages and drugs for allergies, nerves, or sleep ? Do not make important personal or business decisions or sign any legal documents With: Address: When: Eulalia Rodriguez [address] [place] [address] Business (1) Within 5 to 7 days Comments: Reviewed discharge care instruction. Continue with therapy as outlined by Dr. Coppola. Take your medication as prescribed. Contact your family doctor or PCP within the recommended time. Return to ER for any worsening symptoms especially any symptom that concerns you. Medication Information: The exam and treatment you received today in the [facility] Emergency Department were for an urgent problem and are not intended as complete care. It is important for you to follow up with a doctor, nurse practitioner, or physician?s assistant sales director for ongoing care. If your symptoms become worse or you do not improve as expected and you are unable to reach your usual health care provider, you should return to the Emergency Department, we are available 24 hours a day. For those patients who have received Radiology results, the interpretation of your X-ray as given to you by our Emergency Department physician is only a preliminary report. The Radiologist will review your films and if there is a change in the diagnosis you will be notified by phone. Please make sure you have provided a working phone number so we can reach you if necessary. In the event that you had a lab culture while you were a patient in the Emergency Department, you will be notified by phone if there is a need to change your antibiotic. Please make sure you have provided a working phone number so we can reach you if necessary. [facility] Emergency Department has provided you with a complete list of medications post discharge. Please inform your director educational radio/provider of your visit and for further instruction on these medications. Any specific questions regarding your chronic medications and dosages should be discussed with your primary care physician(s) and/or pharmacist. New Medications [facility], [address] [place] [phone], [phone] cephalexin (cephalexin 500 mg oral capsule) 2 cap(s) Oral (given by mouth) Every 12 hours scheduled time for 7 Days. Refills: 0. phenazopyridine (Pyridium 100 mg oral tablet) 1 tab(s) Oral (given by mouth) 3 times a day (scheduled) as needed as needed for urinary discomfort for 2 Days. Refills: 0. Additional medications on your home medication list not specifically addressed. Please contact the ordering physician if you have questions about these medications. estradiol (Estradiol Patch 0.025 mg/24 hours twice weekly transdermal film, extended release) 1 patch(es). ibuprofen (ibuprofen 600 mg oral tablet) 1 tab(s) Oral (given by mouth) 4 times a day. ondansetron (ondansetron 8 mg oral tablet) 1 tab(s) Oral (given by mouth) 2 times a day (scheduled). pantoprazole (pantoprazole 40 mg oral delayed release tablet) 1 tab(s) Oral (given by mouth) every day. Visit Information Allergies: Substance Reaction Symptoms Type Comments Depakote went crazy Drug Depo-Provera bleeding Drug divalproex sodium Drug medroxyPROGESTERone Drug morphine Itching Drug Vital Signs: Vitals and Measurements this Visit (last charted value for your 02/09/2023 visit) Vital Signs This Visit Temperature Oral: 37 DegC Heart Rate Monitored: 79 bpm Respiratory Rate: 18 br/min Systolic Blood Pressure: 115 mmHg Diastolic Blood Pressure: 53 mmHg SpO2: 100 % Oxygen Therapy: Room air Me (more content not included)... [facility] UA Utswn0jr 02-09-2023 UA Amorph. 2+ [facility] Comment on above: Order Comment: Urina lysis Microscopic order added on by [employer] Rules system. Performed By: #### 6 [id number], [id number], [id number] #### [facility] (DEFAULT) [address] [place] [address]85 UA Bacteria 2+ [facility] Comment on above: Order Comment: Urina lysis Microscopic order added on by [employer] Rules system. Performed By: #### 6 [id number], [id number], [id number] #### [facility] (DEFAULT) [address] [place] [address] 18182 UA CA Ox Crystal 1+ [facility] Comment on above: Order Comment: Urina lysis Microscopic order added on by [employer] Rules system. Performed By: #### 6 [id number], [id number], [id number] #### [facility] (DEFAULT) [address] [place] [address] UA RBC 5-10 [facility] Comment on above: Order Comment: Urina lysis Microscopic order added on by [employer] Rules system. Performed By: #### 6 [id number], [id number], [id number] #### [facility] (DEFAULT) [address] [place] [address] UA Squam Epi Moderate [facility] Comment on above: Order Comment: Urina lysis Microscopic order added on by [employer] Rules system. Performed By: #### 6 [id number], [id number] #### [facility] (DEFAULT) [address] [place] [address] UA WBC 40-50 [facility] Comment on above: Order Comment: Urina lysis Microscopic order added on by [employer] Rules system. Performed By: #### 6 [id number], [id number] #### [facility] (DEFAULT) [address] [place] [address] UA w Culture if Ind Standard on 02-09-2023 Breakpoint UA [facility] Comment on above: Performed By: #### 6 [id number], [id number], [id number] #### [facility] (DEFAULT) [address] [place] [address] Color (U) Yellow [facility] Comment on above: Performed By: #### 6 [id number], [id number], [id number] #### [facility] (DEFAULT) [address] [place] [address] Culture? Indicated Invalid Interpretation [facility] Comment on above: Result Comment: Resu lt created by rule GL_MAGR_ADD_UA_CULT Result created by rule GL_MAGR_ADD_UA_CULT Result created by rule GL_MAGR_ADD_UA_CULT1 Result created by rule GL_MAGR_ADD_UA_CULT Performed By: #### 6 [id number], [id number], [id number] #### [facility] (DEFAULT) [address] [place] [address] Glucose (U) [Mass/Vol] Negative Normal [facility] Comment on above: Performed By: #### 6 [id number], [id number], [id number] #### [facility] (DEFAULT) [address] [place] [address] 86841 Ketones Ql (U) TRACE Normal [facility] Comment on above: Performed By: #### 6 [id number], [id number], [id number] #### [facility] (DEFAULT) [address] [place] [address] Micro? Indicated Invalid Interpretation Code [facility] Comment on above: Result Comment: Resu lt created by rule GL_MAGR_ADD_UA_MICRO Performed By: #### 6 [id number], [id number], [id number] #### [facility] (DEFAULT) [address] [place] [address] UA Bilirubin SMALL Abnormal [facility] Comment on above: Performed By: #### 6 [id number], [id number], [id number] #### [facility] (DEFAULT) [address] [place] [address] UA Blood Negative Normal [facility] Comment on above: Performed By: #### 6 [id number], [id number], [id number] #### [facility] (DEFAULT) [address] [place] [address] 09231 UA Clarity SL CLOUDY Abnormal CLEAR [facility] Comment on above: Performed By: #### 6 [id number], [id number], [id number] #### [facility] (DEFAULT) [address] [place] [address] 10900 UA Leuk Est MODERATE Abnormal NEGATIVE [facility] Comment on above: Performed By: #### 6 [id number], [id number], [id number] #### [facility] (DEFAULT) [address] [place] [address] UA Nitrite Negative Normal NEGATIVE [facility] Comment on above: Performed By: #### 6 [id number], [id number], [id number] #### [facility] (DEFAULT) [address] [place] [address] 92493 UA pH 8.0 Normal 5-8 [facility] Comment on above: Performed By: #### 6 [id number], [id number], [id number] #### [facility] (DEFAULT) [address] [place] [address] 95450 UA Protein 30 Abnormal NEGATIVE [facility] Comment on above: Performed By: #### 6 [id number], [id number], [id number] #### [facility] (DEFAULT) [address] [place] [address] 66170 UA Spec Grav 1.020 Normal 1.001-1.035 [facility] Comment on above: Performed By: #### 6 [id number], [id number] #### [facility] (DEFAULT) [address] [place] [address] 03938 UA Urobilinogen 2.0 mg/dL Abnormal 0.2-1.0 [facility] Comment on above: Performed By: #### 6 [id number], [id number], [id number] #### [facility] (DEFAULT) [address] [place] [address] 85455 Urine Source Clean Catch Normal [facility] Comment on above: Performed By: #### 6 [id number], [id number], [id number] #### [facility] (DEFAULT) [address] [place] [address] 75515 Coding Summaryon 01-01-2023 [facility] AdttteueVUz2tIe+PGhlYW Q+UG8AQNSoI89wiSUwsM0j B6EITCyQRxotJQVNTLlXSr ReudVcLZ8xmDHjPOQz IC8+LM6jNBOmKlabgHThh3 Q3nOT9U30uuv7pVHawiTX3 MRWvVgYvstbzb8fzmWy9KP cuNmluOyBt DPWdfL49VVE4pU12Qh14yL CqhZMke1oygUb4StWdKGHx SYQ3qQaxZSomq2LfTIZcO3 1zjRXtc5A9 ADGolIowqSWuXfEzlKC1fC 5nJYzvuisvv0qizfeuOvj5 ft95rJChy6L5dCV5Z9Kqwn D7HFNquMNg RwxihSNTlC4lbvvzn1pune vqKjHjAONhGGw3BYf5IZCx cFuaKsFjCY31EKV5LRMpmt FwC0UfWCBb dTvvXpH0s6J2Xa6RB3GMYf qjW7EYGOVXSXpacJX+PC90 xw96S3DfEidaCgs1BWGyNC Z4jJI3eO9g GKZmIRbzk1K3bSH2A6Tius Spbb6mk7ooQMZjBIekW31k iCTbn2Y8JQSyiAL6AIGsvB qdTxXdwX13 Oyc+BONmmMvci6GuXmorc6 qzx8oifPw1EmplBBLpupEo mHygONC3f2VfQk6bAXIxpW T0gOU8zM0p ChDgDyV2BFcvY673OkQkgB KdPjyjW74aE2FfsMM+PHRy Wsv1IAScpBtkYH9bA1JaMN RpbmctbGVm oHedVY8vUOYsbnbhCBRhoD 4qTSWcI4t0KuPpQhQ6DWdx Y9ByJIJscsqlUo32cY0fFm YkPeX9RCwj N6CtbjY3LEMmcXTjVFpkLW Y8Q91uw4E3BYZxHDIiFRF2 rKE1yB4qqRrybygvgQSvaU sgdmVydGlj BZnfTUfiY731AXXbuQndEv NvZGluZyBEYXRlOiAgMTEv MTcvMjAyMzwvdGQ+PHRkIH W1xKcuQNNt bKYcQWgwYj3xtWwotWdxUF 3lGNZtiogfZHOczY8tOHTa jVDwmRxzNP0kLWHszmdov3 42KpUnEUE7 SXUhmECxJ7KdyI7eNgYpOY XpRRJaX4OkbMGlTQuzA671 MQvpVyX9IJRhezHkE7DkLA FsaWduOiB0 e5P3Jf2Hm3FyfzsdU6LtxK GjTvQeKtvvUAk7Z9OcKsqf dHI+IC54RMWvFT17BZj9FC S3vLunTZps CRWsK8KpqL7zDzQfRBZnRY RkOyc+PHRhYmxlIHdpZHRo WQbsUEIrWlRlsAuwWT8xZb 9yZGVyLWNv uCundEYbSsQjk2tbVBCxJN wlSD7gwRzkX4OzlOZ0QCIf b3r4Vi41T30nN2GkdSB+PG ZdaML7vRL0 pN7gReUzDmY9EIuoS771Bm LclZGySjwhh2jbf5xkdKi5 WfX8ZHXbnsOhoSnpVQL6e5 HnXv33F88e IHdpZHRoPSIxNSUiIHZhbG qphg4seB4aZb6+PGNvbCB3 vPP6zJ6tVxQxSoS0VUfmO8 49InRvcCIv Bixpp3zcq8qytLi2JaDmNO WxztZtaSmuUMC9i7HaCf70 G8PvyRwjk0BmNwa1sy73bC Qyr8D3hTM1 D1UbOFOgdsoxmTDhpUmxLD 6kLQBoxuadUZSoxB7uMQIo B5u9WiPzGmQ8ZLvlM1Dmwv D6UVBufKVj QDXczRDKuJ8myjjfb5nevz jgXfTyXUZhZGm3KHf1TVQa wNpjRtNwUKE8MyZ7FLQ1yW LzyK5hlLuj tmhioT8gMpm+LCC0uRFimG YMAT9hGhntcQD+PHRkIHN0 uCyzRHzfZUHxxQ1eTQMdZ4 b7ZtIrZsQ1 HVmbD0PlnzO6GQZpoNSgHA LevVBDgE1nwftsy6nmysus FyYkBXZmNCd6IUu9PQOxmI duOiBsZWZ0 OsE0XKH4rBKbwZ3iqZmcnu igmJ9lFeh+QmlydGggRGF0 SSs1F2MwBqp4RPIzgWazKR 0ncGFkZGlu Gx4seBeqgNjkVF9eOWFdjj grh564PnEdj5shKARheVYy LJbvKHO0A58uz4B8MCTlPP OhOSV3bHC1 gN5ukRxckydwgTPgcTyfqq VqoQxoQDupUQqyZ615PYYy bUtnMhJdWVh4M4KmFep0HJ YtcScnWZ8z cVOhMSarWn8dtHapaYmsZP 2wBIBndtpnj278NbDis8rq OTUpyBCfRUtwQZU6I68jc6 L6JTEbLNVe RFQ6jUH6eI6ckKvipzxmpX VmdDsgdmVydGljYWwtYWxp D296FZWboVcuBxYgeIq3U9 NpVib0ZGPn oUqgPX5igQXxPQsfNh6auT gneToiWO4iXJXqtrlcg259 TbJkg5vaPTLudGQvWAajAG W9O27ww1M7 MRWcXGJlCHP4bHZ3lJ9ekQ lnbjogbGVmdDsgdmVydGlj PGgjZWbjH472MUXbzYkgLk BhdGllbnQg YXbfREw8I1ViNuybmKW+PC 24YNQsRH71dOTpcXVdx8mi qBj1RhAcBONxPJI8yZxeWU sum3LjGLNi C82gaGGrg5X7JANeqPuqoL LuLlJljCE5kW6cCUvjuknf x2ytsyrkVyoxn6nzzy92hC 59V44fVDhj ZHRoPSIzMCUiIHZhbGlnbj 3vlB5yPp2+UVUvhRQ5ePP8 jQ9zWXQpPeX7OKneL376Tw RvcCIvPjxj t3gla2azqJv7RqY7XMLijc LvzUerYWW8p6KpTs30A86t IHdpZHRoPSIyMCUiIHZhbG kpgz1huE2x Ii8+VEWinIF8fRQ9aE0oAq WsKzM4WIpgP824PrZmlSYd MoxqX72hD8ReqRS+PHRyPj t7GOAmwGmp KA8xrTLzCYqfSt8pXOG9Re QbFjUhKYcvO8OaYPVbdnrb ucvabBB7WARrRALkqP14Rb 9udDogMTBw dYPYrF5zecgmj3jliqpfRh JkYLNeOTy3ENf5GGWbjLxf VwIlNDV5ZzI9EOF0wBSjuU 1hbGlnbjog dJ0pK6HsOORrnlwjGm60rN 3tSxFtCbT7CSlhLgh+V0FS MYjpCMYUARIJCU51XE20pR Hzd3N4zWT5 N0XjJQRbihbybqweaPS7JF GlRXWoiV89rENhURtoDb1i c4E6n083PUAdHMHfzO63Lv 9udDogMTBw uSCScX0psruqp8suroljFl RsZDBsDHm7HSc3MAQfxKsh NyVgRLX6KuB5CLN8gUXjmN 1hbGlnbjog eN4xIhf+QUNfGdwsPRq5Lj wvdGQ+XEAtGQI3cGmoNZjr TWHglI5cYIIzZ0z7MtWrGl T1DRliD6Ag JSKwwssoUw24dQ7iAeXzBm R9NTzkN4OuneO3CSOwsARs UJpkCVX1W59ez8E7YWVhWD NcWGD0cVN2 jN9hyBkvkhciyTZtlFvczi XepHntTRilSPwvN677BXQc jIneRqU3EFyeXQHeXO80MZ 35mNDuz8F1 jSB3V8ZhSVEbybuvclcmiR H0RMOnRCJbxW02mSMxBGxg Bb1ha6T4m284WAGyCXIiyX 86Lk2jrQru KOWujHTDlR4ryskud2pegs sgYlCdIYPoKVl1VNn8LGJa aRzzRjHuYOA8ZsT5DNC1nM SkuW3bfQvn thuyjU0eVgn+RkVNQUxFPC 16TI99qSZoa6P3zAE9D2Xj GJBvjsbkivygdRD2KNEcEF JfkN24vXJu QIoeMs3nu1S8i485XNAlHE NclS86Bp3seXwcPJOdcGJV yF0qgljiu5bjaoutWmOuUO EtLHc0LJe1 TLMnyEsqIcLxDDI5HaQ0KB D0lDXfeS2hrFknqsezuO8h Oyc+U3L5S1KkLnqrxST+PC 87DCJcRV80 kJLmwZPwf0shsUk5TwQnSF GfTXO3tDcpAVzvr0GqAAKg W23wiRHsc0T9ZKIfyXhceE NlOyBlbXB0 iD0wPZmwyugni1fwktcdLx qxb7mdpd97lX11C24wMSul ZHRoPSIzMCUiIHZhbGlnbj 7zmU8fOs5+ ZNSxaZE6hNB1bL3mMaXtKv K5UPtfF760IjZeaAFrSnlv m2lbh4harRh6WkWjQIPoax FsaWduPSJ0 u8GvPn02Q76pUMkoJIDhPX GnVZZlMSIvrYcykm8roF7b Ii8+HW3ec6ayqz17iK31eB I+PHRkIHN0 vBoiBFqbUORszA0yXAjvCa F1UHPnJvVrvP76eIOdVFbu Qu6scQndiKrbNZ0cWDRdgu wlv863QsYt u6emQBDreYMaGQdnHHD6R7 5va7N0IAHoRVKlCBS0mSR3 hD6pgOyfmvuvoJVimPhamy VydGljYWwt JVpyX597XNCjzFjrPkEanE JeX1usfmIRXC8cFjomoFK+ NFUcGMI1bDyxGFbhXSRclA 3gXKFmG4v4 ThDaQsX7DIclF7QckfV0PD OgaTCtBYNjrLHLyF6sfwnc q0jbarpfMxLqJOBlYWw8FL w0PZDkgRbr RpSzNCM9UeH4XAW8zNIixD 5fcBmptjfieN6aEff+RklO OjwvdGQ+UVWvYBK7qPrcKF rzMOTyzD8s AYRxN4m9WjLeEeT4KOsuD7 GguaE9MRHrmMVrJIBdpMDX qW2nrvkwc9sdrmadUeIrAH JpOYq3ISe4 DSZowPpuPxDgRKH6TkH7WV Y3yDQbqB6whMdzyvxbaA0h Oyc+TVJOOjwvdGQ+PHRkIH J4gHxeBQsu MRQtjE9dSDMnC0n7ZiWpAu J7SPtuV7LnyyY2QHKbwUBj MQLeuQLLrM6lajlke7azjl ogIzAwMDAw NGs2BFp4OPLusGlhVwPsVY T2MwL8LQD2lXVlgB1zxWlq vodxkX1bGzn+YRK4VIV2BZ 99LY61Y6Zh PjwvdGFibGU+PHRhYmxlIH dpZHRoPScxMDAlJyBzdHls DY5dLp9gVOQtQTSlzPktqA HqTfUhw2xs YXB (more content not included)... Normal [facility] .Auto Diff 12-30-2022 Auto Starke % 11 % Normal 02-26 [facility] Comment on above: Performed By: #### 2 332257, 6167423, 89225830, 4855827, [id number] ####[facility] (DEFAULT)[address] [place] [address] 73238 Baso Abs# 0.1 x10 Normal 0.0-0.2 [facility] Comment on above: Performed By: #### 2 773080, 8197133, 12876888, 5761557, [id number] ####[facility] (DEFAULT)[address] [place] [address] 21278 Basophils/100 WBC (Bld) 1.1 % Normal 0.2-2.0 [facility] Comment on above: Performed By: #### 2 009088, 1834292, 02630224, 5925280, [id number] ####[facility] (DEFAULT)[address] [place] [address] 56087 Eos Abs# 0.1 x10 Normal 0.0-0.4 [facility] Comment on above: Performed By: #### 2 839173, 6698002, 68942623, 8613145, [id number] ####[facility] (DEFAULT)[address] [place] [address] 23110 Eosinophils/100 WBC (Bld) 2.3 % Normal 0.9-4.0 [facility] Comment on above: Performed By: #### 2 374187, 3519196, 44964186, 0490765, [id number] ####[facility] (DEFAULT)[address] [place] [address] 76017 Lymph Abs# 2.2 x10 Normal 1.3-2.9 [facility] Comment on above: Performed By: #### 2 618162, 9675478, 58460691, 4613768, [id number] ####[facility] (DEFAULT)[address] [place] [address] 36943 Lymphocytes/100 WBC (Bld) 43 % Normal 14-48 [facility] Comment on above: Performed By: #### 2 382289, 6748769, 37568015, 2680067, 9512776959 ####[facility] (DEFAULT)[address] [place] [address] 60221 Starke Abs# 0.6 x10 Normal 0.0-0.8 [facility] Comment on above: Performed By: #### 2 302155, 9766725, 38063806, 0344681, [id number] ####[facility] (DEFAULT)[address] [place] [address] Neut Abs# 2.1 x10 Normal 1.5-9.2 [facility] Comment on above: Performed By: #### 2 447716, 2339441, 35418506, 6552723, [id number] ####[facility] (DEFAULT)[address] [place] [address] Neutrophils/100 WBC (Bld) 42 % Low 44-88 [facility] Comment on above: Performed By: #### 2 713911, 4357545, 82851237, 7911170, [id number] ####[facility] (DEFAULT)[address] [place] [address] Amylaseon 12-30-2022 Amylase [Catalytic activity/Vol] 43.0 U/L Normal 28.0-100.0 [facility] Comment on above: Performed By: #### 2 367505, 1164836, 74210452, 8063905, [id number] ####[facility] (DEFAULT)[address] [place] [address] CBC w/ Auto Diffon Erythrocyte distribution width (RBC) [Ratio] 14.3 % Normal 11.5-15.0 [facility] Comment on above: Performed By: #### 2 610470, 9495978, 20497311, 5917371, 4837324687 ####[facility] (DEFAULT)[address] [place] [address] Hematocrit (Bld) [Volume fraction] 38.9 % Normal 33.7-40.4 [facility] Comment on above: Performed By: #### 2 172403, 8853019, 72682106, 7186127, [id number] ####[facility] (DEFAULT)[address] [place] [address] Hemoglobin (Bld) [Mass/Vol] 13.2 g/dL Normal 11.3-15.9 [facility] Comment on above: Performed By: #### 2 827674, 9577955, 46156189, 9332993, 8318135582 ####[facility] (DEFAULT)[address] [place] [address] Man Diff? Auto Invalid Interpretation Code [facility] Comment on above: Performed By: #### 2 443457, 6577575, 18120422, 5704132, [id number] ####[facility] (DEFAULT)[address] [place] [address] MCH (RBC) [Entitic mass] 32 pg Normal 24-34 [facility] Comment on above: Performed By: #### 2 787266, 8755030, 50797112, 9234729, 1640791045 ####[facility] (DEFAULT)[address] [place] [address] MCHC (RBC) [Mass/Vol] 34 g/dL Normal 26-37 [facility] Comment on above: Performed By: #### 2 480564, 1506053, 60081147, 8738683, 6130673274 ####[facility] (DEFAULT)[address] [place] [address] MCV (RBC) [Entitic vol] 94 fL Normal 81-100 [facility] Comment on above: Performed By: #### 2 599658, 9653194, 33408297, 6050847, 1507383210 ####[facility] (DEFAULT)[address] [place] [address] Platelet 283 x10 Normal 138-427 [facility] Comment on above: Performed By: #### 2 716067, 1701811, 39662083, 1237662, [id number] ####[facility] (DEFAULT)[address] [place] [address] Platelet mean volume (Bld) [Entitic vol] 8.1 fL Normal 6.3-10.2 [facility] Comment on above: Performed By: #### 2 826282, 5297249, 66674567, 4284748, [id number] ####[facility] (DEFAULT)[address] [place] [address] RBC 4.16 x10 Normal 3.70-5.30 [facility] Comment on above: Performed By: #### 2 073715, 8017640, 35739934, 7832809, 4264417894 ####[facility] (DEFAULT)[address] [place] [address] WBC 5.0 x10 Normal 3.5-10.5 [facility] Comment on above: Performed By: #### 2 302848, 5221145, 91350422, 8443272, 9303495502 ####[facility] (DEFAULT)[address] [place] [address] CMP Standardon 12-30-2022 eGFR Non AA >60 Invalid Interpretation Code [facility] Comment on above: Performed By: #### 2 090693, 0931021, 46671606, 0141921, 2946011417 ####[facility] (DEFAULT)[address] [place] [address] eGFR AA >60 Invalid Interpretation Code [facility] Comment on above: Performed By: #### 2 428054, 5450599, 69617131, 9100589, 1302734936 ####[facility] (DEFAULT)[address] [place] [address] Albumin [Mass/Vol] 4.3 g/dL Normal 3.5-5.0 [facility] Comment on above: Performed By: #### 2 045713, 5648301, 72363948, 9519197, 9637230028 ####[facility] (DEFAULT)[address] [place] [address] Albumin/Globulin [Mass ratio] 1.5 {ratio} Normal 1.4-2.6 [facility] Comment on above: Performed By: #### 2 626842, 3373500, 08762807, 4421566, 9962094290 ####[facility] (DEFAULT)[address] [place] [address] Alk Phos 101 IU/L High 32-91 [facility] Comment on above: Performed By: #### 2 079703, 3898019, 35317597, 2867299, 1538601053 ####[facility] (DEFAULT)[address] [place] [address] 58358 ALT [Catalytic activity/Vol] 19.0 U/L Normal 14.0-54.0 [facility] Comment on above: Performed By: #### 2 127122, 8194101, 72252569, 6606408, 5810852728 ####[facility] (DEFAULT)[address] [place] [address] 06670 Anion gap [Moles/Vol] 17.7 mmol/L Normal 5.0-19.0 [facility] Comment on above: Performed By: #### 2 435798, 5251000, 06039690, 8103299, 5053190126 ####[facility] (DEFAULT)[address] [place] [address] 31391 AST [Catalytic activity/Vol] 17 U/L Normal 15-41 [facility] Comment on above: Performed By: #### 2 658277, 7231468, 94913051, 3450127, 6160083295 ####[facility] (DEFAULT)[address] [place] [address] 93096 Bili Total 0.4 mg/dL Normal 0.3-1.2 [facility] Comment on above: Performed By: #### 2 115215, 2908374, 98378781, 3094684, 1060297123 ####[facility] (DEFAULT)[address] [place] [address] 93672 Calcium [Mass/Vol] 9.4 mg/dL Normal 8.9-10.3 [facility] Comment on above: Performed By: #### 2 481709, 1799857, 75655620, 1538637, 4840374230 ####[facility] (DEFAULT)[address] [place] [address] 60819 Chloride [Moles/Vol] 104 mmol/L Normal 101-111 [facility] Comment on above: Performed By: #### 2 070490, 3335167, 76681930, 7521234, 5132136023 ####[facility] (DEFAULT)[address] [place] [address] 75515 CO2 [Moles/Vol] 29 mmol/L Normal 21-32 [facility] Comment on above: Performed By: #### 2 042969, 0056510, 05030631, 1428607, 2915557731 ####[facility] (DEFAULT)[address] [place] [address] 09742 Creatinine [Mass/Vol] 0.80 mg/dL Normal 0.60-1.30 [facility] Comment on above: Performed By: #### 2 248256, 5114981, 53812337, 5137481, 6672614721 ####[facility] (DEFAULT)[address] [place] [address] 92952 Globulin (S) [Mass/Vol] 2.7 g/dL Normal 1.5-4.3 [facility] Comment on above: Performed By: #### 2 682078, 9356650, 00293267, 4345223, 8442246968 ####[facility] (DEFAULT)[address] [place] [address] 87783 Glucose [Mass/Vol] 95.0 mg/dL Normal 74.0-118.0 [facility] Comment on above: Performed By: #### 2 564406, 8618521, 54078508, 1155174, 7568591715 ####[facility] (DEFAULT)[address] [place] [address] 93433 Osmolality 288 mOsm/L Invalid Interpretation Code [facility] Comment on above: Performed By: #### 2 890214, 7917007, 64647754, 2584928, 1441460594 ####[facility] (DEFAULT)[address] [place] [address] 05943 Potassium [Moles/Vol] 4.7 mmol/L Normal 3.6-5.1 [facility] Comment on above: Performed By: #### 2 349192, 1450123, 23273756, 4049703, 6628556775 ####[facility] (DEFAULT)[address] [place] [address] 21322 Protein [Mass/Vol] 7.0 g/dL Normal 6.5-8.1 [facility] Comment on above: Performed By: #### 2 287970, 9137516, 18658085, 7150821, 7327125115 ####[facility] (DEFAULT)[address] [place] [address] Sodium [Moles/Vol] 146.0 mmol/L High 136.0-144.0 [facility] Comment on above: Performed By: #### 2 761302, 6747517, 05067164, 7383516, 9568989362 ####[facility] (DEFAULT)[address] [place] [address] Urea nitrogen [Mass/Vol] 7 mg/dL Low 8-26 [facility] Comment on above: Performed By: #### 2 543347, 5743382, 48308439, 5941345, 6247069362 ####[facility] (DEFAULT)[address] [place] [address] Urea nitrogen/Creatinine [Mass ratio] 8.7 mg/mg Normal 4.6-16.2 [facility] Comment on above: Performed By: #### 2 316710, 2626999, 74605725, 0050426, 4282850191 ####[facility] (DEFAULT)[address] [place] [address] Lipaseon 12-30-2022 Lipase Level 34.0 IU/L Normal 22.0-51.0 [facility] Comment on above: Performed By: #### 2 162888, 2925341, 56176049, 1721226, 4089565054 ####[facility] (DEFAULT)[address] [place] [address] Provider Orderson 12-30-2022 Provider Orders [id number]. 00OTGTIFF Normal [facility] UA w Culture if Ind Standard on 12-30-2022 Breakpoint UA [facility] Comment on above: Performed By: #### 1 [id number] ####[facility] (DEFAULT)[address] [place] [address] Color (U) Yellow Normal [facility] Comment on above: Performed By: #### 1 [id number] ####[facility] (DEFAULT)[address] [place] [address] 15850 Culture? Not Indicated Invalid Interpretation Code [facility] Comment on above: Result Comment: Resu lt created by rule GL_MAGR_ADD_UA_CULT1 Performed By: #### 1 [id number] ####[facility] (DEFAULT)[address] [place] [address] 57659 Glucose (U) [Mass/Vol] Negative Normal [facility] Comment on above: Performed By: #### 1 [id number] ####[facility] (DEFAULT)[address] [place] [address] 71989 Ketones Ql (U) Negative Normal [facility] Comment on above: Performed By: #### 1 [id number] ####[facility] (DEFAULT)[address] [place] [address] 62734 Micro? Not Indicated Invalid Interpretation Code [facility] Comment on above: Result Comment: Resu lt created by rule GL_MAGR_ADD_UA_MICRO Performed By: #### 1 [id number] ####[facility] (DEFAULT)[address] [place] [address] 98550 UA Bilirubin Negative Normal [facility] Comment on above: Performed By: #### 1 [id number] ####[facility] (DEFAULT)[address] [place] [address] 48459 UA Blood Negative Normal NEGATIVE [facility] Comment on above: Performed By: #### 1 [id number] ####[facility] (DEFAULT)[address] [place] [address] 70353 UA Clarity CLEAR Normal CLEAR [facility] Comment on above: Performed By: #### 1 [id number] ####[facility] (DEFAULT)[address] [place] [address] 46954 UA Leuk Est Negative Normal NEGATIVE [facility] Comment on above: Performed By: #### 1 [id number] ####[facility] (DEFAULT)[address] [place] [address] 97711 UA Nitrite Negative Normal NEGATIVE [facility] Comment on above: Performed By: #### 1 [id number] ####[facility] (DEFAULT)[address] [place] [address] 40683 UA pH 7.0 Normal 5-8 [facility] Comment on above: Performed By: #### 1 [id number] ####[facility] (DEFAULT)[address] [place] [address] 75788 UA Protein Negative Normal NEGATIVE [facility] Comment on above: Performed By: #### 1 [id number] ####[facility] (DEFAULT)[address] [place] [address] UA Spec Grav 1.020 Normal 1.001-1.035 [facility] Comment on above: Performed By: #### 1 [id number] ####[facility] (DEFAULT)[address] [place] [address] 70889 UA Urobilinogen 0.2 mg/dL Normal 0.2-1.0 [facility] Comment on above: Performed By: #### 1 [id number] ####[facility] (DEFAULT)[address] [place] [address] 22174 Urine Source Clean Catch Normal [facility] Comment on above: Performed By: #### 1 [id number] ####[facility] (DEFAULT)[address] [place] [address] 05004 FL upper GI w air*on 023 FL upper GI w air* [facility] Main [place] [address] [place] [address] Fluoroscopy Report Signed Patient: Arielle Reed MR#: [id number] : 1985 Acct:[id number] Age/Sex: 37 / F ADM Date: 12/17/22 Loc: XD Room: Type: [facility] Attending Dr: Teresita Gavin APRN Copies to: Teresita Gavin APRN Ordering Provider: Teresita Gavin APRN Date of Service: 12/17/22 FL/FL upper GI w air*: R14.0 DOUBLE CONTRAST UPPER GI SERIES CLINICAL HISTORY: Mid abdominal pain and distention. Difficulty eating for 2 weeks. COMPARISON: None TECHNIQUE: Double contrast upper GI series was performed. Cumulative Air Kerma in mGy: 122.83 mGy FINDINGS: Adult Basic Education Instructor image demonstrates no acute findings. Esophagus is of normal caliber without evidence of stricture, mass or ulcer. Gastroesophageal reflux was seen to level of distal esophagus. No tertiary contractions were noted. No aspiration was seen. Imaging of the stomach demonstrates no stricture, mass or ulcer. No hiatal hernia was noted. Small bowel imaging demonstrates rapid transit with a normal fold pattern and positioning of the duodenum. Overhead images demonstrates that the giving contrast is already within the colon. FL/FL upper GI w air* IMPRESSION: GASTROESOPHAGEAL REFLUX WAS SEEN TO LEVEL OF THE DISTAL ESOPHAGUS. NO EVIDENCE OF STRICTURE, MASS OR ULCER IS NOTED. RAPID TRANSIT OF THE SMALL BOWEL. Impression dictated by: Mickey Vazquez Jr., D.ORadha12/17/2022 9:26 AM Dictation Location: [place] [address] Transcribed By: [place] 12/17/22925 Dictated By: Mickey Vazquez Jr, DO 12/17/22920 Signed By: 12/17/22925 Normal [facility] XR pelvis 1-2Von 12-10-2022 XR pelvis 1-2V [facility] Main [place] [address] [place] [address] XRay Report Signed Patient: Arielle Reed MR#: [id number] : 1985 Acct:[id number] Age/Sex: 37 / F ADM Date: 12/10/22 Loc: [facility] Room: Type: [facility] Attending Dr: Refugio Garza II, MD Copies to: Refugio Garza MD Ordering Provider: Refugio Garza MD Date of Service: 12/10/22 XR/XR pelvis 1-2V: Pain in right knee;Pain in left knee ([id number]) XR/XR knee BI 4V: Pain in right knee;Pain in left knee BILATERAL KNEES - 4 views each pelvis: CLINICAL HISTORY: Bilateral knee pain for years. Fell on ice 9 months ago. COMPARISON: Knee series 08/14/2022 FINDINGS: Bilateral knee series: No acute bony process or significant degenerative change involving the knees. No significant joint effusion. Joint spaces appear maintained. Pelvis: No acute bony process. No significant degenerative change of the hips. XR/XR knee BI 4V IMPRESSION: NO ACUTE BONY PROCESS OR SIGNIFICANT DEGENERATIVE CHANGE. Impression dictated by: Mickey Vazquez Jr., D.O.12/10/2022 4:11 PM Dictation Location: RADIO-PC-12 Transcribed By: [place] 12/10/221610 Dictated By: Mickey Vazquez Jr, DO 12/10/221609 Signed By: 12/10/221610 Normal [facility] XR pelvis 1-2V [facility] [employer] Other XR pelvis 1-2V [facility] [employer] Other XR pelvis 1-2V [address] [place] [address] [employer] Other XR pelvis 1-2[place] [address] No [facility] [employer] Other XR pelvis 1-2V XRay Report [email or web address] Other XR pelvis 1-2V Signed [employer] Other XR pelvis 1-2V Patient: Arielle Reed MR#: [id number] [employer] Other XR pelvis 1-2V : 1985 Acct:[id number] [employer] Other XR pelvis 1-2V Age/Sex: 37 / F ADM Date: 12/10/22 [employer] Other XR pelvis 1-2V Loc: [facility] Room: Type : [facility] [employer] Other XR pelvis 1-2V Attending Dr: Refugio Garza II, MD [employer] Other XR pelvis 1-2V Copies to: Refugio Garza MD [employer] Other XR pelvis 1-2V Ordering Provider: Refugio Garza MD [employer] Other XR pelvis 1-2V Date of Service: 12/10/22 [employer] Other XR pelvis 1-2V XR/XR pelvis 1-2V: Pain in right knee;Pain in left knee [employer] Other XR pelvis 1-2V ([id number]) XR/XR knee BI 4V: Pain in right knee;Pain in left knee [employer] Other XR pelvis 1-2V BILATERAL KNEES - 4 views each pelvis: [employer] Other XR pelvis 1-2V CLINICAL HISTORY: Bilateral knee pain for years. Fell on ice 9 months ago. [employer] Other XR pelvis 1-2V COMPARISON: Knee series 08/14/2022 [employer] Other XR pelvis 1-2V FINDINGS: Bilateral knee series: No acute bony process or significant degenerative change involving [employer] Other XR pelvis 1-2V the knees. No significant joint effusion. Joint spaces appear maintained. [employer] Other XR pelvis 1-2V Pelvis: No acute bon y process. No significant degenerative change of the hips. [employer] Other XR pelvis 1-2V XR/XR knee BI 4V [employer] Other XR pelvis 1-2V IMPRESSION: [employer] [facility] [employer] Other XR pelvis 1-2V NO ACUTE BONY PROCES S OR SIGNIFICANT DEGENERATIVE CHANGE. [employer] Other XR pelvis 1-2V Impression dictated by: Mickey Vazquez Jr., QiORadha12/10/2022 4:11 PM [employer] Other XR pelvis 1-2V Dictation Location: [place] [address] [employer] Other XR pelvis 1-2V Transcribed By: CLARK 12/10/22 [facility] [employer] Other XR pelvis 1-2V Dictated By: Mickey Vazquez Jr DO 12/10/22 1610 [employer] Other XR pelvis 1-2V Signed By: [place] [employer] Other XR pelvis 1-2V 12/10/22 1611 [facility] [employer] Other Provider Orderson 12-09-2022 Provider Orders [id number]#1 .00[facility] Coding Summaryon 08-17-2022 Coding Summary [employer]Base 64 GrbfnbaqKWk8oYf+PGhlYW Q+RX8OGVGpY06nbZTkyV8d H6SBYPpYCxtnZRNODOrPSv FhazVsZN4lvXCeZZXv IC8+WR0bRYUwKuzvyBJsw3 V7gIO1W41nmo2lNAchqON0 XZXkSmAmlwilo2shgNm7ZE cuNmluOyBt FMJyoA62ZYX2pM26Qc56oA ZxnLOog6iiaCd8YgBzWKWv CBK0pOqnGNhhg3AgMOYzW0 1vyOYrz6V0 BHKqoUfbdLLbSaTdySP5mA 1nOIyeggghy3ondtkeTfd4 wl92sEAug8K5mCT4M5Nplz J4ETRpsVNy HvbekTSDpV1prtvah5nqxj crAuTmZAOvDCz8OBk9XIYk mSkoNyIqQC82VVF5SELjpp VuC6MfDPMa vAfnTuZ5u5G4Nd5GM7JOTl ibJ2RAMPYGARrcgZB+PC90 ry47L9WuLcctUir8DFZxKC J9rXV8sB8c VBXrNKtie5A1oWV9D2Dxgo Agiz5ga0iiGSKuZEwgY06l zPVxr5P8MPIxgIE9YYClmG lyDaLqdX49 Oyc+XOEtgFbup0QcJrckz5 twi4qvqNk5BynaSIXosgIk hHqjFYJ9s3FjAw8wAHNvlF U8sZV1rX5u JjZzTcT0LRtbV743OkTymS WkHnaaX17jS9XohBO+PHRy Cqq1OUWieRmlYH4lN0BeZV RpbmctbGVm wQmfTS7vLAVzlvioGYVidL 0qYFKaU3m8PqCmSsL1VMxs R3NmTWFarwjpQs65hG0tSr EaOxH9RBhs H3XqqfR2IBKevZXzPHqeLQ S3I37kt4S8GIMiYFJdXDA8 uQY6jT3wmFbrpeabzEUdrC sgdmVydGlj AYlhIWviL739ZWAttSrpPq NvZGluZyBEYXRlOiAgMDcv MDMvMjAyMzwvdGQ+PHRkIH U9pFaaYQKj tIPhTLcqYx9szIhhwAfmZE 8jRIOpgmwlNIAkuT1fDGVr mIDkyNtsWM9yXOSruqvwh6 69BkPaSSV9 VWSfmXRmW1RjxE2nVfVdVO GtJCUzI9EzxDLbUNrlT735 WXewShL3DXJpbnEiR8FcMB FsaWduOiB0 f1K4Ql9Hp9HyfwqhG9UogT EoGsQnYuelWUp4N4WzCtgn dHI+[id number] Q1zGnvTDcp QGUeG9SwmS6yRzZkATKpAL RkOyc+PHRhYmxlIHdpZHRo IFpcFMVhQyXlpVrcAX5aWv 9yZGVyLWNv xEpxdGQzOfWej4svOZRlYO ppVO0gxBlnU3WleFL1OUMx l6n1Rw89W97nM8IebZM+PG ZieJA2mYK8 vA9lGyXyTeY6XRqlB069Dk AvoYNuBgyuh9guj5nneSh7 JjC6QPUikyXdnEmbITS6q2 VeAu16V84n IHdpZHRoPSIxNSUiIHZhbG bfda1yfO2oSl2+PGNvbCB3 tIY9hD0iCdScVzO4TQyeR1 49InRvcCIv Khufo8osm1bgiGh5DfQhKT KrzzSvvXzfDLE1w8HuHx46 Q9ZvyKnre2WyUnx3iw42tU Erx5C3dQK9 S6TkHNVouofilGSksSnkYL 1eDQQfucxkPWNgdV7gNRDg I9l8NmRwHhV8FLpoY4Xaih N8NWXnsVHu YHGvmZBMtA2sduqya5nuwq otKpWrMRNuNSd8FAf7TPVp yHzdTiWrDXK7GtV4QYD4pZ JgyK5mtKeg eckodE4wYsu+DDO4sLHiyI QDPO7zCjqgyDF+PHRkIHN0 nAhuLFzgDMGoeD4bDDQeN1 i7DrXeTeU0 UCigE8AaqwC0EGEsiUDjAD AdjBPNmB1xlgyom7utslyb QcLbTODoSTe7XVs9XDDbxE duOiBsZWZ0 VqV7JIR1rROcmL5uuTlods lumA5xFwb+QmlydGggRGF0 UVc3X9QkIxv1QLRiwPuwSI 0ncGFkZGlu Bw6txBtscOmjLB8lCCQgff roh189DtDjr6qaJKCwiXXr LPedMYE8B12kx9S8NIYhQN PhVJC8eKQ4 rZ6bvXxxffmxxIDmgFwwkl YukGwsOQkuZVvpK855TGGj iWocGtJaVYi3K6UmDge6OG KzjIjeCJ8a cOWkTMgzDu1brJygfLotWM 8nOIXupmeav788RbNsq2se JQSknBXqVFbbWUG4M81ss5 S5JUZgBXIz YND8nZA3eV5xwTmnurpczT VmdDsgdmVydGljYWwtYWxp Z685CQPbaPegWdEmsLr3N8 CeMls4QABw gZxlMW4ydXEvTNwoJx6ucV clnIwvBF2cTCSympman304 EuPtk0peOJXejSYpVUvdDO Q6G98hx9V3 GDBdSTEoQLF2vMU8nK2mcH lnbjogbGVmdDsgdmVydGlj EFviHEyzQ871RZSmwIvuVy BhdGllbnQg VAroMYm6J7GyNexqpKT+PC 86UDCfDF87wYNbdOSyh4jk qZi8WhVaYMIhBYO0iHamOX bpo3ToEJKp I06xuEBlc4X1HHPvzMnzkD BwPyTltWW9nE3hZMezovmc k1hqajahDbejv1vmbh03zC 79L91tEEqf ZHRoPSIzMCUiIHZhbGlnbj 0jaP6oHg6+IBHwfXU9lBJ6 iI5vQKBtLcJ2LZyqI135Ql RvcCIvPjxj h1imj9tpaUd5ThK4IOJxsr WvlSxtYUZ7z1LlBc43O23u IHdpZHRoPSIyMCUiIHZhbG gfwc6mqE7k Ii8+UGOfbQO4kOP7eL9dOf RcRbO3ABljU589LgXftKNp AmpuL65fJ7BwwCF+PHRyPj n0JYZryVpt YA1zjXQiSQzxMx0aPBC6Wp LcQgHkMLciI0OjYAVgewfa pjzulKN2APSzIVBnoM86Qh 9udDogMTBw mESGmW3vbpxuy4xammhsJp PfLJSvDZx7QOk6RZZjhLsf NbOsPBK6IuK6EAU7eGVhwE 1hbGlnbjog bW3oK0IgLWNiyuloYk23rD 1kGaZaIgZ5PGllBmr+V0FS VCtmWSFVNBXBKY41HA69xM Teh0E4oZR2 N2ZgCEPeqcyuffulqSK1IF PdBUWsrV39dYKjQSrmGl8x t2J1l861MHVnFJKkvG95Su 9udDogMTBw hNCTkB2rabfms0ehxiyfIk FvFDGoEAs2HKa2AULlnArv IeGpCPJ0DqE0YYP7yGFlyZ 1hbGlnbjog kN7zVrw+NAKcLybsXAk1Ns wvdGQ+UWRgJWA2rDuoSDms SWKkpG7tEWOzR4m1WqYjEu M1IZsxP8Sk UERyzdsqQl18qJ5gKnWlHn I4ITlnW7XxyfG5PCIwxTZo BMprQMQ0D35pk8A7ANVxQI KfROP1jUI4 wZ8phXgcuofrwOIisKeoyp IbsNjjCHdwKSzpW191TLUp sKuwMrH0LAduORZrDV08ZA 19uWHpk0Q1 vJJ3Z9IwIGBfhhlibwdtfN O6RFKuGJTqkX49dBLoGZto Ra8qu2J9l394CCDiXHLcxM 20Li0bsXsl MSAvsODGjP8jofhev4jjgl gpMyTkQUByGGq9HXw1BXSd pAqmUzQiBEN5QlB9XBW1hP YtrN6rcObx nyprzG2sFhi+RkVNQUxFPC 69GH18oANtj8Z9xBT5V8Gc THEyjemvllimaXG8MTTsSG HbeN34qPDq NRtfEg5sc6L9n635IMSqZJ GpaE88Bp5ggTpiYOYlbRWC tQ6vnetki0lwrwxxMoArLS HrJOw8FUh7 MUPkcRhcFtRjIJG0XpI9KX U4vJXcuT2kcKsqjimakB1x Oyc+F5B6K3EdVovcoSC+PC 43XSKbNX94 wHZgqGTsh3luxZc1RcRnNJ DhPVE4cGriATqjv6GxFMAh C67cxYMks0E1KMHsaHemaY NlOyBlbXB0 kJ7sQKclcxmvm7hdhhgdVk qoo2rkwb10tU59H82jIUun ZHRoPSIzMCUiIHZhbGlnbj 7pwV5fAt0+ EJSbpNF9wOZ5lU3tDfAkBy Q5LJguE902DlRrtWNoTvhv p7kub7hzkUx6ZpCsRUZctp FsaWduPSJ0 o2HgIj52Y62xYVndNFCtMO NiIKPlLPTdsSduko6xtL6z Ii8+KY3tm6fbdn47oW50gF I+PHRkIHN0 dKwbHMohUYYuxQ7pFPaoIt U5LQQsZlXtyZ96wUBhTXfg Mk3lsUscsXxoGR5aDYVjuo hgy390ZjNh q6ujUNNzuVQlWJosFXD9K3 3mi4N8UGTsVJLeRLP0iTB7 tW0ouUtebqoorYJydAbexb VydGljYWwt MZfdP954RIBsiXjtCqOlzU RfO2lhrlKMVB9xDgpgbNR+ ZPIeBNE7nIxgVRarSYFgyS 0gZLBnO6t0 NyTmJwN8YDudL6VuuvL7IM DvhMOjNLNozKDInY7xfqdl q5srvzkyTgHzFCJbDAz2ND y5VYWpzDtc XvAgQXO6KpB0IWW2mULccF 2qfHxfjafzkN6iGwx+RklO OjwvdGQ+ZVVyEGI7aZeiMM ebMCKodM4i KWFzG2r9YyLnLhT0MBdlO4 LdnaM6ZVSxwPGkTPPlgDYC aN9bgxjkq7oaaooiHtExEN UvRFb0CBf6 ZZGoxWxuVpLoZIK6FbI5MG J2fYGxxZ3kqLdmtwzyuU7v Oyc+TVJOOjwvdGQ+PHRkIH R7oJchUUei MHHblS7wFQYkD1k0WgZmEe F1IJrlS2BghiE1JXUbzYJq CGZadBJSjB7psxzba2olbz ogIzAwMDAw QMh3MLy6XRNgsQmlCoHjSE L1JoS6EFK6dHFnaD0qlLtw vfkbmC6kLgc+DZQ1IYD9MG 09CQ32Y1Jc PjwvdGFibGU+PHRhYmxlIH dpZHRoPScxMDAlJyBzdHls BG5tDg6sYOByFTBrhHnejY AxUzSep2pl YXB (more content not included)... [facility] XR Knee Complete Lefton 07-18 XR Knee Complete Left HISTORY: Chronic knee pain COMPARISON: Radiographs of the knee 08/05/2006 TECHNIQUE: AP, lateral, oblique, and sunrise views of the knee FINDINGS: No acute fracture or dislocation. Joint spaces are maintained. No knee joint effusion. Soft tissues are within normal limits. IMPRESSION: No acute osseous abnormality. Final Signed (Electronic Signature): Refugio Diggs DO 08/14/22 6:09 pm Technologist: JUDITH SARKAR [facility] XR Knee Complete Righton XR Knee Complete Right HISTORY: Chronic knee pain COMPARISON: Right knee radiographs 07/10/2022 TECHNIQUE: AP, lateral, oblique, and sunrise views of the knee FINDINGS: No acute fracture or dislocation. Joint spaces are maintained. No knee joint effusion. Soft tissues are within normal limits. IMPRESSION: No acute osseous abnormality. Final Signed (Electronic Signature): Refugio Diggs DO 08/14/22 6:12 pm Technologist: JUDITH SARKAR [facility] Provider [place] 08-11-2022 Provider Orders [id number]#1.00 OTGTIFF [facility] Provider Orders [id number]#1.[address] [place] [address] Release of Informationon Release of Information [id number]#1.00 [facility] Provider [place] 07-14-2022 Provider Orders [id number]#1.[address] [place] [address] Coding Summaryon 07-11-2022 Coding Summary HTMLBase 64 IiidauijDPv6pFh+PGhlYW Q+UO9YQABpX34weQIymE6b Z8WSSIxKBfrcTTEDYXlMGo CdptCiOQ3mzBArARZy IC8+IK8xSACzTqnyhTNtr2 G8pIT6F14ssq7jRHqofTC4 JRKgEmTjeognn4humBq2NT cuNmluOyBt NTMwxS58WEZ8nD72De30yR GtlWKfm8kgqKy1YbPsPEVl DWL0eTefHUadl1YkLBEpZ2 9jyVXoh4I2 ZUIncUztaEVqKkAvmYJ9rD 1sZHhmkhuxf2fezmmkMdf1 fi30cOKox1D4cON8V4Fdel O8ELWfcZHf GggrwGMXyP1wynsbe0fqov qnZzNgXQQxAPw7ELp4ZPGu gXuoUkJmVE09YBW5BYWvtn QnW1AgAXCi eChuIzL2c4M9Dj8BM1IBIv bdU8SVKBOUQPuupGO+PC90 dq09A6TjFisvFgj8LCLrEK V5yKG0uA5s NYLfQQwph8V1bHQ3O4Vnje Rpvw9fj5ksLWVjRXdgU74y bIBno3U3LQOrlBQ0LGTgbQ huRuYyiZ28 Oyc+SGZyxKykt6SmMytim1 chz0thkCj4WdylURIyqyTr nSawCAW6t7VvBt7jKWVknE I4nXV1yX4t BaWdTdH3BRoeE732RrIxsU WjKgdaK51yQ9EinLB+PHRy Sai5ROYgpWvdXU8zL1VtBS RpbmctbGVm bQggRF6hGXRqazmyRSBaeQ 0mUIUfK3s2QcCxIlT0ZSui T3XqRRJuhppfHo61bH1fNn HoOeS4WJxv J7DiltE0FSOqmDGtXPprXC I5L70qm3B6DBKtKJDsIZK8 nQV0bY2asPnikmionLOoqM sgdmVydGlj PMdbCOpeV985PBKhaPqaUp NvZGluZyBEYXRlOiAgMDUv MjcvMjAyMzwvdGQ+PHRkIH Q3uDwcLHEo nPFlIHhsKw4ufKsndWyjMD 1bWDYpwboiSWBveP0oVFZf qGAoeIogKI4vRLCfftmtk4 04MdPrBTS2 ZBYghNVpV1ZqbQ5qRdPmAJ JuWPYzB1OsqZSqVCtrP220 PSszUcN2NAYbzrLxR7AxQL FsaWduOiB0 n3S3Fx2Dx5BwnaqbU6QzfB LiNqAqFlyxSQd6N2ZvDeqx dHI+QG76GSJfVY36ORh3WG A0yFrsPKez SJZgU3JleA7tWvChBFUcFL RkOyc+PHRhYmxlIHdpZHRo VYucTUZwIwSyoHfgWD1wFd 9yZGVyLWNv dIdecQEaHxLkm2ccAGRpLX isZC9ewSsnT2MbsKI1VJNt s3o1Gx42G87gV4UcuSE+PG SnwTV0tBY3 pB8aVxYoAmL3DPsbC932Xk CogUKyHehhu0wra1jzlUe8 EuR8GVYpakKavIhhFLP5v2 MfAi88S48g IHdpZHRoPSIxNSUiIHZhbG vdpz6nlU6zTm6+PGNvbCB3 tRO1lP8uSpDpFfN1XEzhZ4 49InRvcCIv Puxzi5nst9ttbWt1QeOrBN PzszIuuDxbQBA0q3TjOg15 G7RcmNawn1EhSzn1zn04vE Mnk5Z1qBT3 N6QvAGBaqcimqLLgcNqzBH 0bSJIlczmkESXpvF9wBTDs Z4b8NjMrOlS6NEijM2Kdck B6UHWtlFHf GSNfsCPOxG4indhlj9buxb ffVuNjYSRvFDh2NUi1RKBn mAtiOmYrOCV5HaI5YFK8vD TqdK8otIbj nhgtbM3pLyc+LLP1zXWrcQ RYYV3pPjstaKC+PHRkIHN0 mJcjMRmqPYUtuW3rKOPnJ9 y0UbAzMaS9 DWnhF1VdklJ2IQKebDXjSI ClnDKNnW4wdebwv5fhabhg NlTaGMEvIPe7CVe9VEBpxS duOiBsZWZ0 MlW0JVK8iJSrsL9fjUqrtz spgI1kSek+QmlydGggRGF0 UHy5K9SpMyy1IMCpwVwcKJ 0ncGFkZGlu Qa3ynFyxkEhvMR8vBMGjkp moh087BfNeu6zpPEOdcTDr MQyrPQC0K51sm9Z7MJNaKK UoLCE1eGQ6 pF3nxZrgybwgrTDpvGarpn EbyUkbGBhxEWisK321PDNn jMnvHpDjXUn4U3YnTdt1YG BwjPgbEK4l fPIrTUhrMq2tzBaftVijIX 4kSBHcrhkkm554IsJnp9ze SIPsxDKeTXmyFAD8A85xb5 L8ISOvHGRr IPB9lJD7xQ9lrZspwurmoB VmdDsgdmVydGljYWwtYWxp D033QAKksXakCnNpvSi2H2 RaOxu6TQUg tLqwZD0hzUQpWVrjEl3fcC yzpZqzTG4mDMMfeubar377 KxWgk2qtYSUwhTMzMQphYP V0U40pp6X1 QUHgVBQdJPM4rDW9tO9baI lnbjogbGVmdDsgdmVydGlj HLpuQZxiN486FAShrGiePm BhdGllbnQg TDdeSQh4P7ZfWhvnfEM+PC 43UVXzCF68hSLudOHgw5kp nMz2NnSwOBKpEFC4kNlaVI asw4HpYOGr N38bgALun3Q5TYFkuWvyhD OzEaOsbLO2eM3iRImdqyzq f1myxipwFofyj1otln96jN 02S01cCGay ZHRoPSIzMCUiIHZhbGlnbj 5qqM0qYg7+RQYvdTY0sKH0 oX4vITYcCeG6IIdpC019Xs RvcCIvPjxj d7oog2mfsGh9QnP6AWCsva BrtCzaLUN5j1SaPn46F05o IHdpZHRoPSIyMCUiIHZhbG poml4liE5p Ii8+BUYkjDQ5rKO3lW1vSi VdYeW3ATtqQ024PsTfoUHf BietD43zA1FxyAZ+PHRyPj k5ANIwwMqd NZ5obIKfUTxaVr1xVCP7Vq VbTgJjHFthT2JnPLNkfsxc wrlfjPH7IUPqJQLgzU82Ux 9udDogMTBw xJAEmW8pgwavx5bhdsbuKm FhALUvMCf0KRt4OXYhdYgl DhGxLMM4FbE4WQE7pKFckU 1hbGlnbjog mF3pY7BkWPQlmahvIv00kG 6kVuTnTcO4WJpgLfo+V0FS WTfzMHOEGSFLFF13GY59rW Dip4G2xTE5 X7BaHOOfohgycybvqDL5IZ EgIPMvtC88ySJbWOimJz4t k1A9t906PWJoKNUjpF42Iq 9udDogMTBw bHMReH8fookom8azixnvWz ClVXUuRRh8NSw1BELojVih BqNeCMT3QdW1FVU4tUVhoH 1hbGlnbjog lB0oSbf+IEHyKxwmBJs5Fg wvdGQ+SGYbAHD2aLfsQLfw GABzyO0tPCPoF3l6NvEwXf Y6ZMakU8Nl PYWritvsXj26pR6pCuDcEy X8XXrkR1JaqxU0LGTozIUe JZrhMPO5I46tj9F2YAKiIG JmDIN2gFW3 fZ9wpAcrrmmdjZSjsAkrqx TfpNjcSTwjESdfY794XXWf lIutXuP8JHydGSLaVL34MV 97cOVue9Y1 uNH3F6KoKVPzylofgnqwrV H2AZKtLEUdgG58bVYbWCuk Pn5kz4J2x832OUHsHFRbkN 92Be3dsMst YVBhgFICpI5xztxur4qwdl upYsOoBRRiDSi2SJu8YFYt cVgqUiEbSVD7IvA2ZOE0fH WqwH5exCqo mgbruH1cScc+RkVNQUxFPC 98XB82nFZjc0T6hRW5R8Do GOUcoebygumxvSY3QOSxTE EgkR44eNUi NVwaEe5zf0T3r186MPEdIF MovU92Qd7wxSfyDBNxeHOS zA0iqetjq4ovmrgnNlXuHW VqGPk5RBp7 CSEejYiaLrFeWOU5EsU1QT F9cDVooY1ehLyqtiugiR9e Oyc+J8M1Z2SvJusegJD+PC 76UUVaLK37 hAXniBDxa4jxsHv2IqAhPN YiXWL5sKdnZPjlk4LbILNg W02djHXbi2F0LKEjbWodoU NlOyBlbXB0 zK0mBOldplxpv8avzbjzNs mlm9pvqd71zP46J00pSBwe ZHRoPSIzMCUiIHZhbGlnbj 7evB3mMw6+ WBPofCO9dTS6zY2bLzLdSx V0DNcvR349EeZsxHVyKtva w5kgt5yqgZs7NvLgTREori FsaWduPSJ0 h7YaYc23F60fTQjiIJCwMT DhBCErOJLarDhbym3jaU3n Ii8+EA4zc6dxwm95kC98mR I+PHRkIHN0 iRmoXLbxHZZsvV2eARtpHf G2JXVmNwBzqL73cTZwRRan Lc0qaKevjEgzWX6tMJGunq fkt944YyTt f0frOPBwrEScDBawCXJ9J6 5lg3G0QBLmQWUqAJX3jXJ5 kL1ngFbsmwyniYNzoWmbus VydGljYWwt RMaeZ712XGRnbOfwViNiuM GhL9yxihBWAV1oKqmyeFY+ UDNgOEM8hRujLSoaXWXycY 8lAUZbR6s0 YcPoXsO2GBysY7IwpqN9MW LosCBvSJDuuEWNbX6ekiqx z7bkgwimYsSyXCSxSWm9PX j4FOYqtZfb MmPwBTP7QfO6WEN9iJDdeH 3loSclgsgjkZ1pYgt+RklO OjwvdGQ+ZBBwZWC5mHvjQA rbSHKoaH1i YWTaU4m3JhOiYsG7AXkuK8 JdsxI4FZGqzOPuFEFhhWSR gK6hngobr0brieiyGpLrQL MoYYb2EEe5 FPObwKbzEbSrCIK5GeZ9VK C4mOFuoR5ktEipnwjzbX0r Oyc+TVJOOjwvdGQ+PHRkIH Q6lWtkHVeb HVOilT8xPYWuL9e1SyUkLm A8HCrfO3EegfK1COSthOMw CZNkzKVJhW1itwmuq9vevc ogIzAwMDAw UPe3YIj1AXJbdVdqYgFvJB H7JgF9PNY3bTAgrF2xpNku mmqhcU3qQhr+LCL6ABT6RK 04BJ45U0Ga PjwvdGFibGU+PHRhYmxlIH dpZHRoPScxMDAlJyBzdHls FF3uSc1sGFTcUSEjmEipwI VhHyBnd5us YXB (more content not included)... [facility] XR Knee 3 Views Righton 06-16 XR Knee 3 Views Right COMPARISON: [none] FINDINGS: [There is no lytic or sclerotic bone lesion.] There [is no fracture or dislocation.] [The joint spaces are preserved.] [The patella is within normal limits.] [ ] [There are no radiopaque foreign bodies.] IMPRESSION: There are no acute changes. Final Signed (Electronic Signature): Manoj Nunez MD 07/11/22 7:49 am Technologist: [facility] Coding Summaryon 05-21-2022 Coding Summary HTMLBase 64 ZmviyqwnMMa2tXs+PGhlYW Q+JU5XWLFhP84osDJdrQ6Q X4tCPK6ZKKLYXCPHPV1NVD 9ezNJ0GNsoN7LcjnDa BtdujBTwYE13ASi6UQE6aQ fiSJkkmR4dzNFcS4k9IvFz FN52zH44GOamXDVxPlM5Vh ZpbjsgbWFy U7txWkBixSOgDua+PHRhYm xlIHdpZHRoPScxMDAlJyBz tZdgZI3nHc1jBWGoAMVvhW xhcHNlOiBj b8urXDWhYEurBA6aeJmqR3 FfyNK4YTDlh9s9Mc29dFH+ EVEgXBG3tPkiRRwdv164Ds Nrv0yfEKZ4 jNGxIJruDRI5K90ci5R7WB VfUZYfHSA4nFI4eO6zqVns rytmI4EjqWJhFcC9NHF9gG RujO8qsQuf shylgY5oSnl+S95SDW3OPY AOFQ8DWiy8F5UzBbvahUV+ YH64YNErAK72fRJtwJSal3 bjiEi4KxAc AJWwWXF0fUttBAudg4BmEH XdM19xaJOac0N3TSSjxLmr mZXkPqUryXZ6dC7eWAaaks jio3nkjmtq Xokjz6xagq33oW97M26uKK nkHICjGUN8XBMlEXKneDoo kl8gdF9vYf1+DJctt6ntx7 gcqFx6WoJu UDAzyhOwoRitYRO9j7AgTi 62K5BroLisu0UwWls4hq15 kPHgh8V4yGT8SGleEZJhdO 6aMPpqVnO2 DSEdKsJksK84gXNtCRiwJa 6eqVvuxDnoPY8aBWJbjghe EXLpyE1oLCIdfNZzpBkoNZ 4wNTBpbjtm x777MxLdUNA2RWNorAGcT2 UhdM7dBgRvCPPxGAHtW4Et eXOoEWuyL343NPkqGiJ6ZM RkwqGwW6Eg GKFatWozZiM1d1B1Hn0Rq5 QylkkkFGN1MIhkWIZ5BdA1 JoUnFgP6D9RoHjp5GMXymZ txRI8eG4Oj VYVrewqqicmmeTU4MKYlYS XgoG61iWRyIYeaTt5xj1N8 f734KTOvASFrgS78Tl9aoA ogMTBwdCBU kC0pmlevf7ezpoqlLgQhAE BkBIe4QKl4TCNczGomQwIn DUK5QcP8WMT9cVAcxQ9auM qjvvasfF4g Oyc+Z84axX2rLFB1ZZQ2ub blSIHdqaCdFX39MN51G5Fq PjwvdGFibGU+PGRpdiBzdH qdCX2pZsVh f8wbz5DaYSfoM5PlVNWhME qaMzn3UTFvLKM2tZH6nO4j XJWqBGuzo0A2jTE1I2Bkrf Mhey6jy6oc KKWvHVvmP08deZSqm9Q5XZ ImpIF8QDSfcOaqVtXaoS72 Oyc+FAQixUoha2HpWzfpb2 xhz9fnyDj5 WzQySHYbjbBrfRzeLJQ1x5 LtVq05K93gEFwzBMHtDHQv JCJqLAWhlFkvwy2keD4hGw 8+PGNvbCB3 hSR7uJ6fMSUyRbL8JQblW4 10IuWiaULqWskea0oug1ry eNu5KjZzHLJqsoGtjTazRR I4a3CaHz53 N11wGOnrSVStIASaQMJcXH BvtZjbmf8zxX7pKn5+PC9j d8nzbt91eT51kCQ+PHRkIH A6kSwiYJzm TFQydH4pAQxlKhR7GHUjDs CepE19tNHlEBkbLm6asMhn tPuaWI0iMJFoghvdk523Wl Jqt5jhMDSw tSFrPPnxBVC3B24cr9U3AR EdPYSzFFC6rKS5vM1smLar bjogbGVmdDsgdmVydGljYW guKXnjO128 IHRvcDsnPlBhdGllbnQgTm YbUHr1T0RlRaz8CUXgrYsm QA3qeMHbQIswEk8dfJbgkA aeLH8wNALw gskla099VqIfa2aqZFWxxH FvXScdWMP0G56rw6G4ZGKq ZZXrINA1wVG8pI9bcZxgyy ogbGVmdDsg qyHezIgiZWwzFJirX547IV RvcDsnPkJpcnRoIERhdGU6 TN41AD23hGHyl6P6iQK4B9 BhZGRpbmct pozwuPP9LZAiZWRpoO06Mt 2ukMvtPf1iCTSuJOD1SJKy tIHeF1EofQ3eGpFbWHRaQE EcT9WxoSKh UKggX757PTezCaM9TXNntj FvI9SmPSXowDaeYuT5f1I2 Lv7ZY6N2MR07LS33vPSrn5 O3kGI3Z9Qn BWKeulofqqsjbVE8UMZsVS LvtL54Ma9ugDocQa3oRWDh XNE5VGOlxRSdT2VrxJ2jRj AjMDAwMDAw N2BfwYHdVBqzH020RDncOa E0ENMypfYeY6IlDDMaeNbi SvX4j5N2Yg2BIJh3CZ46BT 03aDIgo0W2 uRB2L5VqCFXlxccvbyfufE T0LHSjCTUhwR34Is5bzYxr Nd3kVBSzOAY1COCabKCtK1 SrrT2jSiGk AZRvKCTmR3EhePEjHOnqG9 18NGpyOnT1WYWituDhN7Tu DMZavMuuQrV1m7J6Pu2CXE WwMV45ITO0 dLI6CJ64GC29C8XhVnumcU FibGU+PHRhYmxlIHdpZHRo BSmfAKIbIbZltTbsUU9nTh 9yZGVyLWNv kXambGWrRcStm0onUPBiBT chDB4elShiW7KiiNM4KXJf w9a1Kp40B38zH9ZvrMO+PG JqgZR6aLI6 uX2uQkAdOeP7VQadZ360Jp QyfETvNaypl5duc6vwwJv6 TbD7FHIcfnLcwBgqFNK2y2 LeAg18R74r IHdpZHRoPSIxNSUiIHZhbG dnzl6hoG8zYs9+PGNvbCB3 sDZ5uU5oIeKhUsS8EUqdA8 49InRvcCIv Nxutu1mqn8oylBv8IlDbAE FuovDjuWmlAGH8s7CqZu94 Y6SfiTqll5KdJtn0py59gP Hjz4F7jPV8 Y6TzQPJicpuxoHUfvFnqXT 7uQGWxgeqtSFJevW4qPSAl B1r6TiWuZlF1ZPdvZ7Pagb O3JUGchPQh LCqtHDI0A61gk7U8VQKdOY YwLWG1aUF6hB0zvDcbxzob bGVmdDsgdmVydGljYWwtYW stY576STGl hKxrIJKnfE1oOILyfDLruH vnJI0fBKBbucujYymUHjIp HO3SYnevMPsjcZP+PHRkIH B5aGdhGFtk QHKahF7sPPUaC9f4EqYzRj A1TAvfM8PjRQKgaufxUd38 cT8qSpOeGdR0AGsyQ0Fnho X9NBIfaYAl WAhrLVE9V66lr2Q8GIPwHK VhRGK5cFN2tJ9ldFirasbg bGVmdDsgdmVydGljYWwtYW wkK667KTCw hQtaAfP6EqL2NeE5FSe0X3 DeDpg3ZHAqgPdoHK1bkHKc VAdbYx4quMhtuUjxDY8yTK BpbjtwYWRk iV3eUTHcgTDokAvpSV5wGI Owiurpg675VvRzEGR2DDAm rBHcI9CckK0oIyDtYOEtNT OdV8TgjWZy YCrsI031CQkwGqN2WOOope NgY6TfZUPpdCpxNgJ3f6W8 Fm7aOSJONWJbpwqczRH+PH ZxMBG3vIvs RKktNFZbsV0yZHMeL8i6Hu SiXvM8ALpoG0PkGCOtcsui Ke64tJ2eLcSfJjF2ZAknZ6 XlkuZ0LLCs zTDvAQnnHCL6E20rv2B3VV UdPDUfMWP4jFB0iC9djXgz bjogbGVmdDsgdmVydGljYW maQAuzZ212 IHRvcDsnPkZFTUFMRTwvdG Q+SHBaUBE4sVdyBMgwBFHu oB2zWLVgL0c5SyHbIxI0QW xoN2QaMHEd iuyxIo28tT3cRsOxZbB8GH epM5RwaiF6CQVitBLzQRas QGM6M15df7I8GJIxFLYpMI A4iPY7kH3q bGlnbjogbGVmdDsgdmVydG qzUNplGWjnJ057ZRLzyQro Vq1DGE85DH78H9KzRxzxvL FibGU+PHRh YmxlIHdpZHRoPScxMDAlJy AxoUvwIJ7hVx0iQQChZNSb lHjvzPYsSyOxy5tyIPIdLG ntNK2hoDya L9KmvEG7SRJbc0l6Ng70M2 8eU3DuaDZ+CWGydPG1yTL4 iA8dXhJmIsF0KEpgZ138Qy RvcCIvPjxj p3kni6wjzVj2QxUnAWRagv SovKkdHXH2l6GrRf55B45c IHdpZHRoPSIyMCUiIHZhbG resp7pfV0w Ii8+OJApcYT9iXX6kR4zMi ZhWuG5KEelL392UlVuxGQq MxouC51nJ8SidFG+PHRyPj t2GBLkqXnl UN4jlTHhNWgrNj9vLKF2Sj VmJiJeETlxR4TjFDLybkqj curlmII0NKCnNGTfqT82Qq 9zjWopVc5n MPBhAXL8HIBvuUQoB3GsxS 4mUyWvTQSbNCVkB3JvzRFq ZZafK206OXvcXjP9IIHftl GzS5OvTZVg rRfeLzG7o4G0Im1TcCzjgH NzER2vLeXyJXr8Q4WjQub5 LGNimYkkPQ6qqULtCHmhUi 1yaWdodDog CP5kRROjlrcrc568HaJrc9 pjDKRogDJoSSmhNPI7D97q b7B2WVGbEJHpTEN3iCY5uS 1hbGlnbjog bGVmdDsgdmVydGljYWwtYW naS451FWPizUhzJjZLKhk6 D3WiUnl5YSTfzQlzJJ2cuK JuBHgmTg4g aHpoaFoeYJ6cAFDyajbcb8 06XeHze7vmIQVbjIYzMLax GYE3L78ar6F5LBJgDKKcLR H8dIW4hO0x bGlnbjogbGVmdDsgdmVydG ieJFodCZsyS380RWJrpJjy Zo3NXyi0Y2NzNyn5VSDhnI znVO6nhAWn NAhdKw2dbBbahDwbPP2uFW Zjxxeof321GdPua2mlXJQw oSEdRXjpWXN8J85nm4K4OO MwMDAwMDA7 aUW4iC7pcSyrjkjwpXLnjU eumaZztOoqCPegBVadZ260 IHRvcDsnPlBheWVyOjwvdG Q+RZ02id16 F2LbEcmeBlq0IYHqEPV7gJ U2nL8mORLyIScrt8A7gTQ7 F6QmhcFdwv0mt1rpTPIbHV qdF94iuVIt c2U (more content not included)... [facility] Provider Orderson 05-21-2022 Provider Orders [id number] [facility] T3 Total LCon 05-21-2022 Triiodothyronine (T3) LC 136 ng/dL Invalid Interpretation Code 71-180 [facility] Comment on above: Result Comment: Perf ormed At: [facility] [address] [id number] Debbie Rodriguez PhD Ph:[phone] Performed By: #### 1 [id number], [id number] ####[facility] (DEFAULT)[address] [place] [address]645 CMP Standardon 05-20-2022 eGFR Non AA >60 Invalid Interpretation Code [facility] Comment on above: Performed By: #### 1 [id number], [id number], 2175712, 79127158, [id number], [id number] ####[facility] (DEFAULT)[address] [place] [address] eGFR AA >60 Invalid Interpretation Code [facility] Comment on above: Performed By: #### 1 [id number], 0239767, 7164734, 79324900, [id number], [id number] ####[facility] (DEFAULT)[address] [place] [address] Albumin [Mass/Vol] 4.1 g/dL Normal 3.5-5.0 [facility] Comment on above: Performed By: #### 1 [id number], 1725716, 3117225, 40918477, [id number], [id number] ####[facility] (DEFAULT)[address] [place] [address]151 Albumin/Globulin [Mass ratio] 1.2 {ratio} Low 1.4-2.6 [facility] Comment on above: Performed By: #### 1 [id number], 9866596, 6855168, 92446503, [id number], [id number] ####[facility] (DEFAULT)[address] [place] [address] 76739 Alk Phos 81 IU/L Normal 32-91 [facility] Comment on above: Performed By: #### 1 [id number], 8026957, 8225517, 35444838, 7494884312, [id number] ####[facility] (DEFAULT)[address] [place] [address] ALT [Catalytic activity/Vol] 21.0 U/L Normal 14.0-54.0 [facility] Comment on above: Performed By: #### 1 [id number], 3685491, 2950069, 82263314, 9558444465, [id number] ####[facility] (DEFAULT)[address] [place] [address]00 Anion gap [Moles/Vol] 14.1 mmol/L Normal 5.0-19.0 [facility] Comment on above: Performed By: #### 1 [id number], 2917877, 7101315, 93553472, 2340674296, [id number] ####[facility] (DEFAULT)[address] [place] [address] AST [Catalytic activity/Vol] 20 U/L Normal 15-41 [facility] Comment on above: Performed By: #### 1 [id number], 8299051, 6185931, 93911850, 9301529545, [id number] ####[facility] (DEFAULT)[address] [place] [address] Bili Total 0.6 mg/dL Normal 0.3-1.2 [facility] Comment on above: Performed By: #### 1 [id number], 9795007, 2586185, 52512788, 4877988188, [id number] ####[facility] (DEFAULT)[address] [place] [address] 17009 Calcium [Mass/Vol] 9.7 mg/dL Normal 8.9-10.3 [facility] Comment on above: Performed By: #### 1 [id number], 3211207, 4138749, 51304538, 1788439992, [id number] ####[facility] (DEFAULT)[address] [place] [address] 13990 Chloride [Moles/Vol] 101 mmol/L Normal 101-111 [facility] Comment on above: Performed By: #### 1 [id number], 7698916, 7042446, 12464866, 7260459717, [id number] ####[facility] (DEFAULT)[address] [place] [address] 64412 CO2 [Moles/Vol] 25 mmol/L Normal 21-32 [facility] Comment on above: Performed By: #### 1 [id number], 3826357, 8496795, 77956842, 0534884194, [id number] ####[facility] (DEFAULT)[address] [place] [address]45 Creatinine [Mass/Vol] 0.91 mg/dL Normal 0.60-1.30 [facility] Comment on above: Performed By: #### 1 [id number], 7463149, 8092329, 51172050, 5703226603, 4106673270 ####[facility] (DEFAULT)[address] [place] [address] 44413 Globulin (S) [Mass/Vol] 3.4 g/dL Normal 1.5-4.3 [facility] Comment on above: Performed By: #### 1 [id number], 2148451, 7364207, 63120217, 8367146006, [id number] ####[facility] (DEFAULT)[address] [place] [address] 99747 Glucose [Mass/Vol] 102.0 mg/dL Normal 74.0-118.0 [facility] Comment on above: Performed By: #### 1 [id number], 1043400, 7965057, 17205358, 7905313487, [id number] ####[facility] (DEFAULT)[address] [place] [address] 55091 Osmolality 272 mOsm/L Invalid Interpretation Code [facility] Comment on above: Performed By: #### 1 [id number], 3217880, 4227478, 42866125, 5963387861, 1146110783 ####[facility] (DEFAULT)[address] [place] [address] 23790 Potassium [Moles/Vol] 4.1 mmol/L Normal 3.6-5.1 [facility] Comment on above: Performed By: #### 1 [id number], 0762721, 9707268, 22218976, 3256523847, 7511364044 ####[facility] (DEFAULT)[address] [place] [address] Protein [Mass/Vol] 7.5 g/dL Normal 6.5-8.1 [facility] Comment on above: Performed By: #### 1 [id number], 8501871, 8182281, 28422163, 9986058026, 3813265636 ####[facility] (DEFAULT)[address] [place] [address] Sodium [Moles/Vol] 136.0 mmol/L Normal 136.0-144.0 [facility] Comment on above: Performed By: #### 1 [id number], 6416620, 2532082, 75980504, 4986149304, 4491657942 ####[facility] (DEFAULT)[address] [place] [address] Urea nitrogen [Mass/Vol] 13 mg/dL Normal 8-26 [facility] Comment on above: Performed By: #### 1 [id number], 1539893, 9694325, 28076929, 1355717109, 1221683920 ####[facility] (DEFAULT)[address] [place] [address] Urea nitrogen/Creatinine [Mass ratio] 14.2 mg/mg Normal 4.6-16.2 [facility] Comment on above: Performed By: #### 1 [id number], 2265081, 3641338, 66688314, 4475359009, 7847693396 ####[facility] (DEFAULT)[address] [place] [address] Hemogram Standardon 05-21-19 23 Erythrocyte distribution width (RBC) [Ratio] 13.7 % Normal 11.5-15.0 [facility] Comment on above: Performed By: #### 1 [id number], [id number] ####[facility] (DEFAULT)[address] [place] [address] Hematocrit (Bld) [Volume fraction] 41.3 % High 33.7-40.4 [facility] Comment on above: Performed By: #### 1 [id number], 74071855 ####[facility] (DEFAULT)[address] [place] [address] 51408 Hemoglobin (Bld) [Mass/Vol] 13.7 g/dL Normal 11.3-15.9 [facility] Comment on above: Performed By: #### 1 [id number], 73617970 ####[facility] (DEFAULT)[address] [place] [address] 67578 MCH (RBC) [Entitic mass] 31 pg Normal 24-34 [facility] Comment on above: Performed By: #### 1 [id number], 68349179 ####[facility] (DEFAULT)[address] [place] [address] 67038 MCHC (RBC) [Mass/Vol] 33 g/dL Normal 26-37 [facility] Comment on above: Performed By: #### 1 [id number], [id number] ####[facility] (DEFAULT)[address] [place] [address] 56059 MCV (RBC) [Entitic vol] 94 fL Normal 81-100 [facility] Comment on above: Performed By: #### 1 [id number], 27917151 ####[facility] (DEFAULT)[address] [place] [address] 63540 Platelet 288 x10 Normal 138-427 [facility] Comment on above: Performed By: #### 1 [id number], 46468862 ####[facility] (DEFAULT)[address] [place] [address] 09096 Platelet mean volume (Bld) [Entitic vol] 7.6 fL Normal 6.3-10.2 [facility] Comment on above: Performed By: #### 1 [id number], 61647389 ####[facility] (DEFAULT)[address] [place] [address] 72199 RBC 4.41 x10 Normal 3.70-5.30 [facility] Comment on above: Performed By: #### 1 [id number], 38856405 ####[facility] (DEFAULT)[address] [place] [address] 83073 WBC 6.5 x10 Normal 3.5-10.5 [facility] Comment on above: Performed By: #### 1 [id number], [id number] ####[facility] (DEFAULT)[address] [place] [address] HgbA1c Standardon 05-20-2022 .Hb 14.9 Invalid Interpretation Code [facility] Comment on above: Performed By: #### 1 [id number], [id number], [id number], [id number], [id number], [id number] ####[facility] (DEFAULT)[address] [place] [address] .Hgb A1c 0.51 g/dL Invalid Interpretation Code [facility] Comment on above: Performed By: #### 1 [id number], [id number], [id number], [id number], [id number], [id number] ####[facility] (DEFAULT)[address] [place] [address] Glucose [Mass/Vol] 102 mg/dL Invalid Interpretation Code [facility] Comment on above: Performed By: #### 1 [id number], [id number], [id number], [id number], [id number], [id number] ####[facility] (DEFAULT)[address] [place] [address] HbA1c (Bld) [Mass fraction] 5.2 % Normal 4.6-6.2 [facility] Comment on above: Performed By: #### 1 [id number], [id number], 5116010, [id number], [id number], [id number] ####[facility] (DEFAULT)[address] [place] [address] Lipid Panel Standardon 05-20 Cholesterol [Mass/Vol] 228.0 mg/dL High 66.0-200.0 [facility] Comment on above: Performed By: #### 1 [id number], [id number], 9605757, 61450055, [id number], [id number] ####[facility] (DEFAULT)[address] [place] [address] Cholesterol in HDL [Mass/Vol] 40 mg/dL Normal 40-71 [facility] Comment on above: Performed By: #### 1 [id number], [id number], 6247026, [id number], [id number], [id number] ####[facility] (DEFAULT)[address] [place] [address] Cholesterol in LDL [Mass/Vol] 161 mg/dL High 1-100 [facility] Comment on above: Performed By: #### 1 [id number], 9349952, 9981373, 97886801, [id number], [id number] ####[facility] (DEFAULT)[address] [place] [address] Cholesterol.total/C holesterol in HDL [Mass ratio] 5.6 {ratio} High 0.0-4.5 [facility] Comment on above: Performed By: #### 1 [id number], [id number], 9904227, 59765280, [id number], [id number] ####[facility] (DEFAULT)[address] [place] [address] Triglyceride [Mass/Vol] 135.0 mg/dL Normal 0.0-150.0 [facility] Comment on above: Performed By: #### 1 [id number], [id number], 8959302, 56879797, [id number], [id number] ####[facility] (DEFAULT)[address] [place] [address] VLDL. 27 mg/dL Normal 5-40 [facility] Comment on above: Performed By: #### 1 [id number], 7414050, 6924899, 15806138, [id number], [id number] ####[facility] (DEFAULT)[address] [place] [address] T4, Totalon 05-20-2022 T4 [Mass/Vol] 6.96 ug/dL Normal 6.09-12.23 [facility] Comment on above: Performed By: #### 1 [id number], [id number], 2315527, 54209168, [id number], [id number] ####[facility] (DEFAULT)[address] [place] [address] TSHon 05-20-2022 TSH Qn 1.63 m[IU]/L Normal 0.45-5.33 [facility] Comment on above: Performed By: #### 1 [id number], [id number], 1022679, 77069724, [id number], [id number] ####[facility] (DEFAULT)[address] [place] [address] Vit D25 OHon 05-20-2022 Vitamin D 25 [place] 16 ng/mL Invalid Interpretation Code [facility] Comment on above: Performed By: #### 1 [id number], [id number], 7256556, [id number], [id number], [id number] ####[facility] (DEFAULT)[address] [place] [address] [id number] 06-30-2021 SARS-CoV-2 (COVID-19) RNA CARLITOS+probe Ql (Unsp spec) Detected Abnormal NOTDET [facility] Comment on above: Result Comment: Rapid NAAT: The specimen is POSITIVE for SARS-Cov-2, the novel coronavirus associated with COVID-19. This test has been authorized by the FDA under an Emergency Use Authorization (EUA) for use by authorized laboratories. The ID NOW COVID-19 assay is designed to detect the virus that causes COVID-19 in patients with signs and symptoms of infection who are suspected of COVID-19. An individual without symptoms of COVID-19 and who is not shedding SARS-CoV-2 virus would expect to have a negative (not detected) result in this assay. Fact sheet for Healthcare Providers: https://www.fda.gov/media/118915/download Fact sheet for Patients: https://www.fda.gov/media/762454/download Methodology: Isothermal Nucleic Acid Amplification Results reported to the appropriate Health Department Performed By: #### C OVRB #### [facility] [place] [address] Poured Concrete Wall Technician: Nikolas Jeter MD SARS-CoV-2 NAAT (Rapid)on Interpretation and review of laboratory results Abnormal [facility] SARS-CoV-2 (COVID-19) RNA CARLITOS+probe Ql (Unsp spec) Detected Abnormal Not Detected [facility] Comment on above: Rapid NAAT: The specimen is POSITIVE for SARS-Cov-2, the novel coronavirus associated with COVID-19. This test has been authorized by the FDA under an Emergency Use Authorization (EUA) for use by authorized laboratories. The ID NOW COVID-19 assay is designed to detect the virus that causes COVID-19 in patients with signs and symptoms of infection who are suspected of COVID-19. An individual without symptoms of COVID-19 and who is not shedding SARS-CoV-2 virus would expect to have a negative (not detected) result in this assay. Fact sheet for Healthcare Providers: https://www.fda.gov/media/360742/download Fact sheet for Patients: https://www.fda.gov/media/103365/download Methodology: Isothermal Nucleic Acid Amplification Results reported to the appropriate Health Department Specimen Description .NASOPHARYNGEAL SWAB [facility] XR CHEST PORTABLEon 07-01-19 XR CHEST PORTABLE EXAMINATION: ONE XRAY VIEW OF THE CHEST 06/30/2021 11:05 am COMPARISON: None. HISTORY: ORDERING SYSTEM PROVIDED HISTORY: eval for pmn TECHNOLOGIST PROVIDED HISTORY: eval for pmn FINDINGS: The lungs are without acute focal process. There is no effusion or pneumothorax. The cardiomediastinal silhouette is without acute process. The osseous structures are without acute process. IMPRESSION: No acute process. Interpreted by: Miguel Garza MD Signed by: Miguel Garza MD 06/30/21 Final result Normal [facility] No acute process. [facility] EXAMINATION: ONE XRAY VIEW OF THE CHEST 06/30/2021 11:05 am COMPARISON: None. HISTORY: ORDERING SYSTEM PROVIDED HISTORY: eval for pmn TECHNOLOGIST PROVIDED HISTORY: eval for pmn FINDINGS: The lungs are without acute focal process. There is no effusion or pneumothorax. The cardiomediastinal silhouette is without acute process. The osseous structures are without acute process. [facility] Miguel Garza MD - 06/30/2021 EXAMINATION: ONE XRAY VIEW OF THE CHEST 06/30/2021 11:05 am COMPARISON: None. HISTORY: ORDERING SYSTEM PROVIDED HISTORY: eval for pmn TECHNOLOGIST PROVIDED HISTORY: eval for pmn FINDINGS: The lungs are without acute focal process. There is no effusion or pneumothorax. The cardiomediastinal silhouette is without acute process. The osseous structures are without acute process. IMPRESSION: No acute process. [employer] Work Phone: Radiology Study observation (narrative) [employer] Phone: XR CHEST PORTABLEOrdered By: Miguel Garza on 06-30-2021 [employer] Work Phone: Vital Signs Date Time Vital Sign Value Performing Clinician Facility 02-23-2023 15:00-0500 Body height 160.02 cm Adrien Barajas Other [employer] Other 02-23-2023 15:00-0500 Body mass index (BMI) [Ratio] 25.51 kg/m2 Adrien Barajas Other [employer] Other 02-23-2023 15:00-0500 Body weight 65.32 kg Adrien Barajas Other [employer] Other 12-10-2022 14:30-0400 Body height 160.02 cm Refugio [place] II Other [employer] Other 12-10-2022 14:30-0400 Body mass index (BMI) [Ratio] 26.92 kg/m2 Refugio [place] II Other [employer] Other 12-10-2022 14:30-0400 Body weight 68.95 kg Refugio [place] II Other [employer] Other 06-30-2021 13:36-0400 Body temperature 98.2 [degF] Speedy Lisa MD Work Phone: [employer] 06-30-2021 13:36-0400 Diastolic blood pressure 65 mm[Hg] Speedy Lisa MD Work Phone: [employer] 06-30-2021 13:36-0400 Heart rate 74 /min Speedy Lisa MD Work Phone: [facility] [employer] 06-30-2021 13:36-0400 Respiratory rate 16 /min [facility]edy [facility] 06-30-2021 13:36-0400 SaO2% (BldA) [Mass fraction] 98 % Speedy Lisa MD Work Phone: [facility] [employer] 06-30-2021 13:36-0400 Systolic blood pressure 114 mm[Hg] Speedy Lisa MD Work Phone: [employer] Encounters Encounter Date Encounter Type Care Provider Facility Start: 09-08-2023 End: 09-08-2023 ambulatory Imad Asaad Facility:[facility] Start: 03-11-2023 ambulatory PHYSICIAN NO FAMILY Fac ility:[facility] Start: 02-23-2023 End: 02-23-2023 ambulatory Adrien Barajas Other [employer] Other Start: 02-23-2023 Office outpatient visit 15 minutes Adrien Barajas [facility] Start: 02-17-2023 End: 02-17-2023 ambulatory RAÚL CHAUALIL Facility:[facility] Start: 02-09-2023 End: 02-09-2023 Emergency department patient visit Eulalia Rodriguez BAG PRESS OPERATOR HACKSAW INSPECTOR-C Facility:[facility] Start: 12-30-2022 End: 12-31-2022 ambulatory Eulalia Rodriguez BAG PRESS OPERATOR HACKSAW INSPECTOR-C Facility:[facility] Start: 12-17-2022 End: 12-17-2022 ambulatory [facility] Facility:[facility] Start: 12-10-2022 Office outpatient ne w 45 minutes Refugio Garza II [facility] Start: 12-10-2022 End: 12-10-2022 ambulatory PHYSICIAN NO FAMILY [facility] [employer] Other Start: 12-09-2022 End: 12-10-2022 ambulatory Eulalia Rodriguez BAG PRESS OPERATOR HACKSAW INSPECTOR-C Facility:[facility] Start: 09-18-2022 End: 09-18-2022 ambulatory Eulaliashantell Oscartor BAG PRESS OPERATOR HACKSAW INSPECTOR-C Facility:[facility] Start: 08-14-2022 End: 08-15-2022 ambulatory Eulalia C Kastor BAG PRESS OPERATOR HACKSAW INSPECTOR-C Facility:[facility] Start: 08-10-2022 End: 08-10-2022 ambulatory Eulalia C Kastor BAG PRESS OPERATOR HACKSAW INSPECTOR-C Facility:[facility] Start: 07-10-2022 End: 07-11-2022 ambulatory Eulalia C Daynetor BAG PRESS OPERATOR HACKSAW INSPECTOR-C Facility:[facility] Start: 05-20-2022 End: 05-21-2022 ambulatory None Provider Facility:[facility] Start: 06-30-2021 End: 06-30-2021 Emergency department patient visit SPEEDY LISA [facility] Start: 06-30-2021 End: 06-30-2021 Emergency department patient visit Speedy Lisa MD Work Phone: [facility] ED Comment on above: Cough (Primary Dx); COVID-19 Procedures Date Procedure Procedure Detail Performing Clinician Start: 06-30-2021 COVID-19, RAPID Kwame Porter MD Work Phone: Start: 06-30-2021 Radiologic exam ches t single view Izaiah Porter MD Work Phone: Plan of Treatment Date Care Activity Detail Author Start: 10-16-2021 Influenza vaccination Flu vaccine (S reta Ended) [facility] Start: 2016 Screening for malign ant neoplasm of cervix [facility] Start: 07-14-2007 Screening for malign ant neoplasm of cervix Pap smear [facility] Start: 2005 DTaP/Tdap/Td vaccine (1 - Tdap) DTaP/Tdap/Td vaccine (1 - Tdap) [facility] Start: 2004 Hepatitis C screening Hepatitis C sc reen [facility] Start: 2001 HIV screening HIV screen [facility] Start: 1998 Depression Screen Depression Screen [facility] Start: 07-14-1991 COVID-19 Vaccine (1) COVID-19 Vaccin e (1) [facility] Start: 07-14-1987 Varicella vaccine (1 of 2 - 2-dose childhood series) Varicella vaccine (1 of 2 - 2-dose childhood series) [facility] Payers Date Payer Category Payer Self-pay 2022 Medicaid [id number] 2. [id number] 2021 Unknown [id number] 1986 Unknown [id number] 2.16. [id number] 1986 Unknown [id number] 2.16.8 40.1.527363.3.579.2.8 1986 Unknown [id number] 2.16.8 40.1.017424.3.579.2. 1986 Unknown [id number] 2.16.8 40.1.571052.3.579.2.8 1986 Unknown [id number] 2.16.8 40.1.247731.3.579.2.8 1986 Unknown [id number] 2.16.8 40.1.430641.3.579.2.8 1986 Unknown [id number] 2.16.8 40.1.099654.3.579.2.8 1986 Unknown [id number] 2.16.8 40.1.568335.3.579.2.8 1986 Unknown [id number] 2.16.8 40.1.604055.3.579.2.718 Unknown [id number] 2.16.8 40.1.469938.3.579.2.531 Unknown [id number] 2.16.8 40.1.147388.3.579.2.531 Unknown [id number] 2.16.8 40.1.915895.3.579.2.531 Unknown [id number] 2.16.8 40.1.172270.3.579.2.531 Social History Date Type Detail Facility Tobacco smoking status CTIS Tobacco smoking consumption unknown [employer] Phone: Start: 1985 Sex Assigned At Not on file [facility] [employer] Phone: Start: 06-20-2021 End: 06-30-2021 Exposure to SARS-CoV-2 (event) Not sure [employer] Sex Assigned At Sex Assigned At Bir th [employer] Other Evaluation note 02-23-2023 Note Date & Type Note Facility 02-23-2023 Evaluation note Encounter Date Diagnosis Assessment Notes Feb, Abdominal pain (ICD-10 - R10.9) The patient complains of abdominla pain, nausea, vomiting, & weight loss. She was started on Protonix & Zofran. These symptoms started in November or December of 2022. There is no significant family history. She smokes marijuana daily to help with pain & appetite. An upper GI series does show acid reflux. EGD is recommended for further investigation. Feb, Constipation (ICD-10 - K59.00) The patient complains of life long constipation. This is worse recently due to her avoidance of food. She moves her bowels about 3 times a week. She can add fiber supplementation to her diet. Probiotics are also recommended. There is no rectal bleeding. Her father does have currenlty have colon cancer. Her grandmother had Crohn's disease. Proceed with colonoscopy [employer] Other Progress note 02-17-2023 Note Date & Type Note Facility 02-17-2023 Note HNO ID: [id number] Author: Raúl Jensen MD Service: ? Author Type: Physician Type: Progress Notes Filed: 02/17/2023 4:01 PM Note Text: [facility] [place] SECTION OF REGIONAL CARDIOLOGY OUTPATIENT VISIT DATE February 17, 2023 OUTPATIENT VISIT TYPE NEW PRIMARY CARE PHYSICIAN: To use this Smartlink, specify the provider ID whose address you want to display, e.g., .PROVADDR[1 (where 1 is the provider ID). A written report of the findings and recommendations will be sent to the requesting provider via shared medical record or via [employer]. Patient is being seen at the request of the referring physician for Arrhythmia , Chest pain, Hyperlipidemia, Hypertension, and syncope. HISTORY OF PRESENT ILLNESS: Ms. Reed is a 37 year old female with a history of Umhra-Iclnjdgxc-Sgqda status post ablation therapy at age 14. Syncope. Chest discomfort. Palpitations. Anxiety. Bipolar disorder. Carpal tunnel. Fibromyalgia. ? Hyperlipidemia. ? Hypertension. History of smoking. Cardiovascular workup includes: Ablation therapy for Efpio-Aofgwturg-Lzmbb at age 14. A treadmill stress testing on 09/22/2022 at [facility] was negative however the patient did only 4 minutes and 42 seconds of total exercise. She achieved 79% maximal heart rate predicted. An echocardiogram done on 09/22/2022 at [facility] showed ejection fraction 55 to 60%. No valvular heart disease of any significance. For a few months now she has been experiencing symptoms of chest discomfort described as sharp stabbing pain lasting between 20 minutes to few hours. She mentioned that the chest discomfort happen with rest and on activity. However her symptoms also include shortness of breath with any activity. The dizziness got much better after she started the small dose of Toprol-XL however she still has it occasionally. IMPRESSION: Encounter Diagnosis ICD-10-CM 1. Chest discomfort R07.89 CT CALCIUM SCORING SELF [place]Y ([place]) 2. WPW (Ixmgt-Jpwwegjtk-Txryu syndrome) I45.[address] CALCIUM SCORING SELF [place]Y [place]) 3. Status post ablation of accessory bypass tract Z98.[address] CALCIUM SCORING SELF [place] 4. Syncope and collapse R55 ECG COMPLETE CT CALCIUM SCORING SELF [place]Y ([place]) 5. Dizziness R42 ECG COMPLETE CT CALCIUM SCORING SELF [place]Y ([place]) 6. Smoking F17.200 CT CALCIUM SCORING SELF [place]Y [place]) PLAN AND RECOMMENDATIONS: Chest discomfort Atypical most likely noncardiac. Negative suboptimal stress test. I will ask for a calcium scoring of the coronary arteries. If that is negative no further cardiac workup is needed. History of Kibef-Mffrfeyoj-Iawaz Status post ablation therapy at age 14. Syncope As well as dizziness. Suboptimal stress testing however negative for ischemia. Echocardiogram normal. No more syncope at this point. Dizziness is very unlikely to happen since she started taking her Toprol-XL. Also I did orthostatic pressures today and her blood pressure was exactly the same 104/70 sitting and 105/72 standing up. No orthostatic pressures. However the patient admitted that she does not drink much she drinks only 1 cup of water a day. She was advised to take 64 ounces of water a day and include some salt tablets at times if her blood pressures are low. Smoking The patient continues to smoke about 5 cigarettes a day at this point. She smoked for the last 15 years. She was advised again to stop smoking completely and indefinitely. REVIEW OF SYSTEMS: Chest pain Yes Shortness of breath No Bleeding No Dizziness Yes Syncope Yes Palpations No 10 systems reviewed and are negative with the exception of pertinent positives described in HPI PHYSICAL EXAMINATION: BP 104/70 Pulse 77 Wt 63.5 kg (140 lb) SpO2 99% HEENT: normocephalic, EOMI Heart: regular rhythm Lungs: clear to auscultation Abdomen: bowel sounds present Extremities: no edema Musculoskeletal: chest wall nontender Neurological: alert and oriented Psychiatric: appropriate and cooperative Skin: no rash, cellulitis or lesions appreciated CARDIOVASCULAR MEDICINE TESTING: I have personally reviewed ECG, laboratory results, outside medical records, echocardiogram report, and stress test report PAST CARDIAC HISTORY: See above. History reviewed. No pertinent past medical history. History reviewed. No pertinent surgical history. Social History Tobacco Use Smoking status: Every Day Packs/day: 0.25 Years: 15.00 Additional pack years: 0.00 Total pack years: 3.75 Types: Cigarettes Substance Use Topics Alcohol use: Not Currently History reviewed. No pertinent family history. ALLERGIES Allergen Reactions Morphine Other: See Comments ineffective CURRENT MEDICATIONS: buPROPion XL (WELLBUTRIN XL) 150 mg 24 hr tablet Take 1 tablet by mouth once daily. buPROPion XL (WELLBUTRIN XL) 150 mg 24 hr tablet 300 mg. ondansetron (ZOFRAN) 4 mg tablet Take 4 mg by mouth three (more content not included)... [facility] Clinical Note 02-09-2023 Note Date & Type Note Facility 02-09-2023 Note Education Materials Obstetrics and Gynecology Urinary Tract Infection, Adult A urinary tract infection (UTI) is an infection of any part of the urinary tract. The urinary tract includes: ? The kidneys. ? The ureters. ? The bladder. ? The urethra. These organs make, store, and get rid of pee (urine) in the body. What are the causes? This infection is caused by germs (bacteria) in your genital area. These germs grow and cause swelling (inflammation) of your urinary tract. What increases the risk? The following factors may make you more likely to develop this condition: ? Using a small, thin tube (catheter) to drain pee. ? Not being able to control when you pee or poop (incontinence). ? Being female. If you are female, these things can increase the risk: ? Using these methods to prevent : ? A medicine that kills sperm (spermicide). ? A device that blocks sperm (diaphragm). ? Having low levels of a female hormone (estrogen). ? Being . You are more likely to develop this condition if: ? You have genes that add to your risk. ? You are sexually active. ? You take antibiotic medicines. ? You have trouble peeing because of: ? A prostate that is bigger than normal, if you are male. ? A blockage in the part of your body that drains pee from the bladder. ? A kidney stone. ? A nerve condition that affects your bladder. ? Not getting enough to drink. ? Not peeing often enough. ? You have other conditions, such as: ? Diabetes. ? A weak disease-fighting system (immune system). ? Sickle cell disease. ? Gout. ? Injury of the spine. What are the signs or symptoms? Symptoms of this condition include: ? Needing to pee right away. ? Peeing small amounts often. ? Pain or burning when peeing. ? Blood in the pee. ? Pee that smells bad or not like normal. ? Trouble peeing. ? Pee that is cloudy. ? Fluid coming from the vagina, if you are female. ? Pain in the belly or lower back. Other symptoms include: ? Vomiting. ? Not feeling hungry. ? Feeling mixed up (confused). This may be the first symptom in older adults. ? Being tired and grouchy (irritable). ? A fever. ? Watery poop (diarrhea). How is this treated? ? Taking antibiotic medicine. ? Taking other medicines. ? Drinking enough water. In some cases, you may need to see a specialist. Follow these instructions at home: Medicines ? Take ubpi-ioh-mthycwe and prescription medicines only as told by your doctor. ? If you were prescribed an antibiotic medicine, take it as told by your doctor. Do not stop taking it even if you start to feel better. General instructions ? Make sure you: ? Pee until your bladder is empty. ? Do not hold pee for a long time. ? Empty your bladder after sex. ? Wipe from front to back after peeing or pooping if you are a female. Use each tissue one time when you wipe. ? Drink enough fluid to keep your pee pale yellow. ? Keep all follow-up visits. Contact a doctor if: ? You do not get better after 1?2 days. ? Your symptoms go away and then come back. Get help right away if: ? You have very bad back pain. ? You have very bad pain in your lower belly. ? You have a fever. ? You have chills. ? You feeling like you will vomit or you vomit. Summary ? A urinary tract infection (UTI) is an infection of any part of the urinary tract. ? This condition is caused by germs in your genital area. ? There are many risk factors for a UTI. ? Treatment includes antibiotic medicines. ? Drink enough fluid to keep your pee pale yellow. This information is not intended to replace advice given to you by your health care provider. Make sure you discuss any questions you have with your health care provider. Document Revised: 09/13/2020 Document Reviewed: 09/13/2020 [employer] Patient Education ? 2022 [employer]. [facility] Evaluation note 12-10-2022 Note Date & Type Note Facility 12-10-2022 Evaluation note Encounter Date Diagnosis Assessment Notes Nov, Patellofemoral disorders, right knee (ICD-10 - M22.2X1) Nov, Patellofemoral disorders, left knee (ICD-10 - M22.2X2) Nov, Other We discussed her normal x-rays today. 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 As a result I recommended that she get into formal physical therapy which we prescribed today so she can work on strengthening her VMO and getting better patellar tracking. I would recommend this for an extended period of time likely upwards of 6 months and if she is not getting great relief then I would certainly consider an MRI to further evaluate intra-articular pathology and even evaluate the patellar tracking. In the meantime, we did get her started on meloxicam and provided that prescription. We also prescribed Voltaren gel that she can use on a daily basis. I will plan to check back with her in 3 to 6 months to see how she is progressing with therapy [employer] Other Hospital Discharge instructions 06-30-2021 Instructions Note Date & Type Note Facility 06-30-2021 Hospital Discharg e instructions Izaiah Porter MD - 06/30/2021 Steps to help prevent the spread of COVID-19 if you are sick SOURCE - https://www.cdc.gov/coronavirus /2019-ncov/about/gdhhh-iegc-mam k.html Stay home except to get medical care Stay home: People who are mildly ill with COVID-19 are able to isolate at home during their illness. You should restrict activities outside your home, except for getting medical care. Avoid public areas: Do not go to work, school, or public areas. Avoid public transportation: Avoid using public transportation, ride-sharing, or taxis. Separate yourself from other people and animals in your home Stay away from others: As much as possible, you should stay in a specific room and away from other people in your home. Also, you should use a separate bathroom, if available. Limit contact with pets & animals: You should restrict contact with pets and other animals while you are sick with COVID-19, just like you would around other people. Although there have not been reports of pets or other animals becoming sick with COVID-19, it is still recommended that people sick with COVID-19 limit contact with animals until more information is known about the virus. When possible, have another member of your household care for your animals while you are sick. If you are sick with COVID-19, avoid contact with your pet, including petting, snuggling, being kissed or licked, and sharing food. If you must care for your pet or be around animals while you are sick, wash your hands before and after you interact with pets and wear a facemask. See COVID-19 and Animals for more information. Other considerations The ill person should eat/be fed in their room if possible. Non-disposable dog food shredder operator items used should be handled with gloves and washed with hot water or in a picture booker. Clean hands after handling used dog food shredder operator items. If possible, dedicate a lined trash can for the ill person. Use gloves when removing garbage bags, handling, and disposing of trash. Wash hands after handling or disposing of trash. Consider consulting with your local health department about trash disposal guidance if available. Information for Household Members and Caregivers of Someone who is Sick Call ahead before visiting your doctor Call ahead: If you have a medical appointment, call the healthcare provider and tell them that you have or may have COVID-19. This will help the healthcare provider's office take steps to keep other people from getting infected or exposed. Wear a facemask if you are sick If you are sick: You should wear a facemask when you are around other people (e.g., sharing a room or vehicle) or pets and before you enter a healthcare provider's office. If you are caring for others: If the person who is sick is not able to wear a facemask (for example, because it causes trouble breathing), then people who live with the person who is sick should not stay in the same room with them, or they should wear a facemask if they enter a room with the person who is sick. Cover your coughs and sneezes Cover: Cover your mouth and nose with a tissue when you cough or sneeze. Dispose: Throw used tissues in a lined trash can. Wash hands: Immediately wash your hands with soap and water for at least 20 seconds or, if soap and water are not available, clean your hands with an alcohol-based hand c application developer that contains at least 60% alcohol. Clean your hands often Wash hands: Wash your hands often with soap and water for at least 20 seconds, especially after blowing your nose, coughing, or sneezing; going to the bathroom; and before eating or preparing food. Hand c application developer: If soap and water are not readily available, use an alcohol-based hand c application developer with at least 60% alcohol, covering all surfaces of your hands and rubbing them together until they feel dry. Soap and water: Soap and water are the best option if hands are visibly dirty. Avoid touching: Avoid touching your eyes, nose, and mouth with unwashed hands. Handwashing Tips Wet your hands with clean, running water (warm or cold), turn off the tap, and apply soap. Lather your hands by rubbing them together with the soap. Lather the backs of your hands, between your fingers, and under your nails. Scrub your hands for at least 20 seconds. Need a timer? Hum the Happy Birthday song from beginning to end twice. Rinse your hands well under clean, running water. Dry your hands using a clean towel or air dry them. Avoid sharing personal household items Do not share: You should not share dishes, drinking glasses, cups, eating utensils, towels, or bedding with other people or pets in your home. Wash thoroughly after use: After using these items, they should be washed thoroughly with soap and water. Clean all high-touch surfaces everyday Clean and disinfect: Practice routine cleaning of high touch surfaces. High touch surfaces include counters, tabletops, doorknobs, bathroom fixtures, toilets, phones, keyboards, tablets, and bedside tables. Disinfect areas with bodily fluids: Also, clean any surfaces that may have blood, stool, or body fluids on them. Household casting agent: Use a household cleaning spray or wipe, according to the label instructions. Labels contain instructions for safe and effective use of the cleaning product including precautions you should take when applying the product, such as wearing gloves and making sure you have good ventilation during use of the product. Monitor your symptoms Seek medical attention: Seek prompt medical attention if your illness is worsening (e.g., difficulty breathing). Call your doctor: Before seeking care, call your healthcare provider and tell them that you have, or are being evaluated for, COVID-19. Wear a facemask when sick: Put on a facemask before you enter the facility. These steps will help the healthcare provider's office to keep other people in the office or waiting room from getting infected or exposed. Alert health department: Ask your healthcare provider to call the local or state health department. Persons who are placed under active monitoring or facilitated self-monitoring should follow instructions provided by their local health department or occupational health professionals, as appropriate. Call 911 if you have a medical emergency: If you have a medical emergency and need to call 911, notify the dispatch personnel that you have, or are being evaluated for COVID-19. If possible, put on a facemask before emergency medical services arrive. documented in this encounter [employer] Phone: Evaluation note Note Date & Type Note Facility Evaluation note Diagnosis Cough- Primary COVID-19 documented in this encounter [employer] Phone: History general Narrative - Reported Note Date & Type Note Facility History general Narrative - Reported Type Medical History ADD with hyperactivity Medical History Bipolar Medical History Coccyx pain Medical History Constipation Medical History Depression Medical History Dizziness Medical History Hemorrhoids Medical History Migraines Medical History Panic attacks Medical History Gorge Parkinson white syndrome Medical History anxiety Surgical History Tonsillectomy Surgical History Cardiac ablation-WPW 1999 Surgical History Hemorroidectomy 2011 Surgical History Hysterectomy 2012 Surgical History Laparoscopy-Endometreosis 2012 Surgical History Ectopic 1999 Surgical History injections- lumbar(port andres ) Hospitalization History See above Hospitalization History 4 child births iGistics Other Summary Purpose Family History No Family History Records FoundNo Family History Records FoundNo Family History Records FoundNo Family History Records Found Advance Directives No Advanced Directives Records FoundNo Advanced Directives Records FoundNo Advanced Directives Records FoundNo Advanced Directives Records Found Additional Source Comments Reason for Visit (unrecogniz ed section and content) Reason Comments Cough daughter in peds ICU with covid, thinks she has covid Ordered Prescriptions (unrec ognized section and content) Prescription Sig Dispensed Refills Start Date End Da te benzonatate (TESSALON PERLES) 100 MG capsule Take 1 capsule by mouth 3 times daily as needed for Cough 15 capsule 0 06/30/2021 07/05/2021 cetirizine-psuedoephedri ne (ZYRTEC-D) 5-120 MG per extended release tablet Take 1 tablet by mouth 2 times daily for 10 days 20 tablet 0 06/30/2021 07/10/2021 Scheduled Active and Recently Administ ered Medications (unrecognized section and content) Medication Order 06/28/2021 06/29/2021 06/30/2021 benzonatate (TESSALON) capsule 100 mg (COMPLETED) 100 mg, Oral, ONCE, 1 dose, On Wed06/30/21 at 1400 1445 (Given - Provid er: Carmen Ceron LPN) pseudoephedrine (SUDAFED 12 HR) extended release tablet 120 mg (COMPLETED) 120 mg, Oral, ONCE, 1 dose, On Wed06/30/21 at 1400, Do not crush or break. 1445 (Given - Provid er: Carmen Ceron LPN) INFORMATION SOURCE (unrecogn ized section and content) DATE CREATED AUTHOR 07/05/2021 [facility] DATE CREATED AUTHOR AUTHOR'S ORGANIZ ATION 02/18/2023 [facility] DATE CREATED AUTHOR AUTHOR'S ORGANIZ ATION 02/25/2023 [facility] DATE CREATED AUTHOR AUTHOR'S ORGANIZ ATION 09/23/2023 [facility] FOR RECORDS PERTAINING TO PATIENTS WHO ARE OR HAVE BEEN ENROLLED IN A CHEMICAL DEPENDENCY/SUBSTANCEABUSE PROGRAM, SOME INFORMATION MAY BE OMITTED. This clinical summary was aggregated from multiple sources. Caution should be exercised in using it in the provision of clinical care. This summary normalizes information from multiple sources, and as a consequence, information in this document may materially change the coding, format and clinical context of patient data. In addition, data may be omitted in some cases. CLINICAL DECISIONS SHOULD BE BASED ON THE PRIMARY CLINICAL RECORDS. [facility]. provides no warranty or guarantee of the accuracy or completeness of information in this document.
[2024-01-03 03:28] VITALS: PULSE 65
--- NOTE | 2024-01-03 03:28 | ECG_ITS ---
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
[2024-01-03 03:29] VITALS: BP 109/46; PULSE 59; TEMP 36.9; O2SAT 97; BMI 23.8
--- NOTE | 2024-01-03 03:50 | ED_ITS ---
HPI - Chest Pain General Chief Complaint: Chest Pain Stated Complaint: chest pain Time Seen by Provider: 01/03/24 03:47 Source: patient Mode of arrival: walk-in Limitations: no limitations History of Present Illness HPI narrative: presents complaining of pain left neck and shoulder. Pain also left chest. States left chest is tender. also has pain left shoulder and neck with ROM of the left shoulder. No weakness or numbness. Pain present since yesterday. left work this AM and came to ER. Not short of breath. No fever. Daily cigarette smoker Related Data Home Medications ?Medication ?Instructions ?Recorded ?Confirmed bupropion HCl 150 mg 24 hr tablet, 150 mg PO DAILY 11/26/23 01/03/24 extended release dicyclomine 20 mg tablet 20 mg PO TID PRN abdominal pain 11/26/23 01/03/24 hydroxyzine HCl 50 mg tablet 50 mg PO Q6H PRN anxiety 11/26/23 01/03/24 ibuprofen 600 mg tablet mg 11/26/23 metoprolol succinate 25 mg 25 mg PO DAILY 11/26/23 01/03/24 tablet,extended release 24 hr omeprazole 40 mg capsule,delayed 40 mg PO DAILY 11/26/23 01/03/24 release Allergies Allergy/AdvReac Type Severity Reaction Status Date / Time divalproex sodium (From Allergy Severe Confusion Verified 01/03/24 03:35 Depakote) morphine Allergy Intermediate Rash Verified 01/03/24 03:35 medroxyprogesterone (From AdvReac Intermediate Unknown Verified 01/03/24 03:35 Depo-Provera) Review of Systems ROS Status of ROS 10 or more systems reviewed and unremark able except as noted in history and below PFSH PFSH Social History Little interest or pleasure in doing things: not at all Feeling down, depressed, or hopeless: not at all Exam Constitutional Vital Signs, click to edit/add: Last Vital Signs Temp 98.4 F 01/03/24 03:29 Pulse 59 L 01/03/24 03:29 Resp 16 01/03/24 03:29 BP 109/46 L 01/03/24 03:29 Pulse Ox 97 01/03/24 03:29 O2 Del Method Room Air 01/03/24 03:29 Common normals: no apparent distress, average body habitus, oriented x3, no limitations, healthy appearing, alert and well nourished [facility] Common normals: normocephalic and head/scalp atraumatic Eye Common normals: EOMs intact bilaterally and conjunctivae normal Neck & C-Spine Common normals: full ROM Other: left para muscular tenderness that reproduces symptoms. left chest wall is tender Respiratory Common normals: normal respiratory effort, no retractions, no use of accessory muscles and clear to auscultation bilaterally Cardio Common normals: regular rate, regular rhythm, S1 normal heart sound and S2 normal heart sound GI Common normals: Normal to inspection, nondistended, normoactive bowel sounds present, soft to palpation and non-tender Extremity Common normals: normal to inspection and full ROM Neuro Common normals: oriented x3, CN's II-XII intact bilaterally, moves all extremities and no focal motor deficits Psych Appearance: grossly normal Course Vital Signs Vital signs: Vital Signs Temperature 98.4 F 01/03/24 03:29 Pulse Rate 59 L 01/03/24 03:29 Respiratory Rate 16 01/03/24 03:29 Blood Pressure 109/46 L 01/03/24 03:29 Pulse Oximetry 97 01/03/24 03:29 Oxygen Delivery Method Room Air 01/03/24 03:29 Temperature 98.4 F 01/03/24 03:29 Pulse Rate 59 L 01/03/24 03:29 Respiratory Rate 16 01/03/24 03:29 Blood Pressure 109/46 L 01/03/24 03:29 Pulse Oximetry 97 01/03/24 03:29 Oxygen Delivery Method Room Air 01/03/24 03:29 MDM - Chest Pain MDM Narrative Medical decision making narrative: patient presents with left sided reproducible chest wall pain. also has pain left neck radiating into her shoulder and down her arm. Normal EKG. Normal troponin. Patient advised of her diagnosis of cervical radicular pain and chest wall pain. cxray neg. Discharged home and given prednisone for her chest and neck pain Lab Data Labs: Lab Results 01/03/24 Range/Units 04:25 WBC 8.4 (4.0-11.0) 10^3/uL RBC 3.52 L (4.20-5.40) 10^6/uL Hgb 11.2 L (12.0-16.0) g/dL Hct 33.0 L (36.0-48.0) % MCV 93.8 (81.0-99.0) fL MCH 31.8 (26.7-34.0) pg MCHC 33.9 (29.9-35.2) g/dL RDW 13.2 (11.0-15.0) % Plt Count 253 (150-450) 10^3/uL MPV 10.0 (9.5-13.5) fL Neut % (Auto) 51.1 (43.0-75.0) % Lymph % (Auto) 41.9 (20.5-60.0) % [place] % (Auto) 5.2 (1.7-12.0) % Eos % (Auto) 1.1 (0.9-7.0) % Baso % (Auto) 0.5 (0.2-2.0) % Neut # (Auto) 4.3 (1.4-6.5) 10^3/uL Lymph # (Auto) 3.5 (1.2-3.8) 10^3/uL [place] # (Auto) 0.4 (0.3-0.8) 10^3/uL Eos # (Auto) 0.1 (0.0-0.7) 10^3/uL Baso # (Auto) 0.0 (0.0-0.1) 10^3/uL Abs Immat Gran (auto) 0.02 (0.00-0.03) 10^3/uL Imm/Tot Granulo (auto) 0.2 (0.0-0.5) % D-Dimer <0.19 (<=0.59) mg/L FEU Sodium 142 (136-145) mmol/L Potassium 4.0 (3.5-5.1) mmol/L Chloride 109 H (98-107) mmol/L Carbon Dioxide 25.6 (21.0-32.0) mmol/L Anion Gap 11.4 BUN 9.0 (7.0-18.0) mg/dL Creatinine 0.93 (0.55-1.02) mg/dL Est GFR ( Amer) >60 (>=60 mL/min/1.73m^2) Est GFR (Non-Af Amer) >60 (>=60 mL/min/1.73m^2) BUN/Creatinine Ratio 9.7 Glucose 95 (74-106) mg/dL Calcium 9.2 (8.5-10.1) mg/dL Troponin I High Sens <4.0 L (4.0-51.3) pg/mL Imaging Data Chest x-ray: Radiologist's impression: ITS Impressions Chest X-Ray 01/03/24 03:53 IMPRESSION: 1. No acute cardiopulmonary process. Electronically authenticated by: SARBJIT AC Date: 01/03/2024 04:53 Discharge Plan Discharge Chief Complaint: Chest Pain Clinical Impression: Chest wall pain, Cervical neuropathy Patient Disposition: Home, Self-Care Prescriptions / Home Meds: No Action hydroxyzine HCl 50 mg tablet 50 mg PO Q6H PRN (Reason: anxiety) omeprazole 40 mg capsule,delayed release(DR/EC) 40 mg PO DAILY dicyclomine 20 mg tablet 20 mg PO TID PRN (Reason: abdominal pain) metoprolol succinate 25 mg tablet extended release 24 hr 25 mg PO DAILY ibuprofen 600 mg tablet bupropion HCl 150 mg tablet extended release 24 hr 150 mg PO DAILY Print Language: Turkish Instructions: Cervical Radiculopathy (ED), Chest Wall Pain (ED) Additional Instructions: follow up with your doctor this week for recheck Referrals: Physician,Non-Staff, MD [Primary Care Provider] - 1 week
--- NOTE | 2024-01-03 03:53 | XR_ITS ---
The [address] [address] Patient Name: ALBIN GLEZ MRN: [facility]:[id number] date: 1985 Sex: F Assigned Patient Location: ER Current Patient Location: ER Accession/Order Number: [id number] Exam Date: 01/03/2024 04:06 Report Date: 01/03/2024 04:53 At the request of: JC GALLARDO Procedure: XR chest 2V EXAMINATION: XR chest 2V HISTORY: chest pain ; left side chest and shoulder pain COMPARISON: XR chest 11/26/2023 FINDINGS: LUNGS: No significant pulmonary parenchymal abnormalities. VASCULATURE: No increased pulmonary vasculature. PLEURA: No pneumothorax, effusion, or pleural thickening. CARDIAC: No cardiomegaly or cardiac silhouette abnormality. MEDIASTINUM: No visible mass or adenopathy. BONES: No fracture or visible bone lesion. OTHER: Negative. XR/XR chest 2V IMPRESSION: 1. No acute cardiopulmonary process. Electronically authenticated by: SARBJIT AC Date: 01/03/2024 04:53
[2024-01-03 04:34] LABS: Basophils Percent Auto 0.5 % (0.2-2.0); Eosinophils Absolute Auto 0.1 10^3/uL (0.0-0.7); Eosinophils Percent Auto 1.1 % (0.9-7.0); Hemoglobin 11.2 g/dL (12.0-16.0); Immature Granulocytes Abs Auto 0.02 10^3/uL (0.00-0.03); Immature Granulocytes Pct Auto 0.2 % (0.0-0.5); Lymphocytes Absolute Auto 3.5 10^3/uL (1.2-3.8); Lymphocytes Percent Auto 41.9 % (20.5-60.0); Mean Corpuscular HGB Conc 33.9 g/dL (29.9-35.2); Mean Corpuscular Hemoglobin 31.8 pg (26.7-34.0); Mean Corpuscular Volume 93.8 fL (81.0-99.0); Monocytes Absolute Auto 0.4 10^3/uL (0.3-0.8); Monocytes Percent Auto 5.2 % (1.7-12.0); Neutrophils Absolute Auto 4.3 10^3/uL (1.4-6.5); Neutrophils Percent Auto 51.1 % (43.0-75.0); Platelet Count 253 10^3/uL (150-450); Red Blood Count 3.52 10^6/uL (4.20-5.40); Red Cell Distribution Width 13.2 % (11.0-15.0); White Blood Count 8.4 10^3/uL (4.0-11.0)
[2024-01-03 04:49] LABS: D Dimer <0.19 mg/L FEU (<=0.59)
[2024-01-03 04:51] LABS: Anion Gap 11.4; BUN Creatinine Ratio 9.7; Calcium 9.2 mg/dL (8.5-10.1); Carbon Dioxide 25.6 mmol/L (21.0-32.0); Chloride 109 mmol/L (98-107); Estimated GFR (African America >60 (>=60 mL/min/1.73m^2); Estimated GFR (Non-African Ame >60 (>=60 mL/min/1.73m^2); Glucose 95 mg/dL (74-106); Sodium 142 mmol/L (136-145); Troponin I High Sensitivity <4.0 pg/mL (4.0-51.3)
[2024-01-03] MEDS: PREDNISONE 20 MG TABLET 60 MG PO (04:51)
[2024-01-03 05:12] VITALS: BP 115/68; PULSE 56; O2SAT 96
== END 2024-01-03 05:15 | disposition home or self-care (01) ==
PROVIDERS: Emergency Provider Internal Medicine
DX: R07.89 Other chest pain (principal); G54.2 Cervical root disorders, not elsewhere classified; F17.210 Nicotine dependence, cigarettes, uncomplicated
CPT/HCPCS: 36415; 71046; 80048; 84484; 85025; 85378; 93005; 99285; J7512